=== PATIENT | female | born 1955 | race African-American/Black ===

== ENCOUNTER 2022-06-05 15:17 | Inpatient (IN) | payer MEDICARE ==
[~2022-06-05] VITALS: Ht 157.5 cm; Wt 49.0 kg
[2022-06-05 15:27] VITALS: BP 151/89
--- NOTE | 2022-06-05 15:27 | NUR ---
RN NOTES RECEIVED PT FROM [facility]IA [facility] TO ROOM 119-1 , PT IS A/Ox4. ON 2L O2 N/C , C/O SOB ON EXERTION , ON TELE SR , NO SKIN WOUND NOTED, R WRIST IV SITE CDI, LEFT ARM AVF WITH POSITIVE THRILL AND BRUIT , SR UP x3, CALL LIGHT WITHIN EASY REACH BED LOCKED AND IN LOWEST POSITION, CONTINUE TO MONITOR.
--- NOTE | 2022-06-05 15:34 | NUR ---
PATIENT RECEIVED FROM [facility]ARY DIRECT ADMIT,DR. TRIVEDI NOTIFIED AWAITS ADMITTING ORDERS.ON [place] FOR [facility] [place].
[2022-06-05] MEDS ORDERED: Z GUARD REMEDY 4 OZ OINT TP PRN (16:00)
[2022-06-05] MEDS ORDERED: *INSULIN REGULAR(HUMULIN R)HUM 100 UNIT/ML VIAL SQ PRN (16:00)
[2022-06-05] MEDS ORDERED: ACETAMINOPHEN 325 MG TABLET PO PRN (16:00)
[2022-06-05] MEDS ORDERED: MAGNESIUM HYDROXIDE 30 ML UDC PO PRN (16:00)
[2022-06-05] MEDS ORDERED: DEXTROSE 50%-WATER 50 ML DISP.SYRIN IV PRN (16:00)
[2022-06-05] MEDS ORDERED: ONDANSETRON HCL/PF 4 MG/2 ML VIAL IVP PRN (16:00)
[2022-06-05] MEDS ORDERED: MAG HYDROX/AL HYDROX/SIMETH 30 ML UDC PO PRN (16:00)
--- NOTE | 2022-06-05 16:00 | NUR ---
PER DR. TRIVEDI HE NOTIFIED DR. DAVIS ALREADY FOR HEMODIALYSIS.
[2022-06-05] MEDS: BLOOD SUGAR DIAGNOSTIC 1 EACH STRIP VI SCH ×2 (17:50→22:04)
--- NOTE | 2022-06-05 18:40 | NUR ---
RN NOTES PT AT REST , NO DISTRESS NOTED, WILL ENDORSE TO DATA INTEGRITY SPECIALIST NURSE FOR CONTINUITY OF CARE .
--- NOTE | 2022-06-05 19:10 | NUR ---
RN NOTES RECEIVED REPORT FROM MORNING SHIFT. PATIENT IN BED A/O X3. WITH ONGOING HD. ON NASAL CANULA AT 2 LPM SATING 99% NO SOB NO DISTRESS NOTED AT THIS TIME. WITH IV ACCESS AT R WRIST # 20 PATENT FLUSHES WELL. JOSE AV FISTULA. ISOLATION PRECAUTION IN PLACE AT ALL TIMES. WILL CLOSELY MONITOR THE PATIENT
[2022-06-05 20:00] VITALS: BP 155/81
--- NOTE | 2022-06-05 20:20 | NUR ---
RN NOTES MED RECON ENTERED AND INFORMED DR. SHAW.INFORMED.
[2022-06-05] MEDS ORDERED: LIDOCAINE 2% 20 ML MDV MC PRN (20:30)
--- NOTE | 2022-06-05 20:50 | NUR ---
RN NOTES HEMODIALYSIS COMPLETED. UF REMOVED 2L. PATIENT COMFORTABLE IN BED.
[2022-06-05] MEDS ORDERED: ALBU2.5V13 IH (21:52)
[2022-06-05] MEDS ORDERED: PRED10TA PO (21:52)
[2022-06-05] MEDS ORDERED: HYDR-4076 PO (21:52)
[2022-06-05] MEDS ORDERED: DOXY-226 IV (21:52)
[2022-06-05] MEDS: INSULIN REGULAR, HUMAN 100 UNIT/ML 3 ML VIAL SQ PRN (22:11)
[2022-06-06] VITALS: BP 146/88
--- NOTE | 2022-06-06 00:40 | NUR ---
RN NOTES RELAYED PROCALCITONIN 1.62. RELAYED TO DR SHAW WITH ORDER [facility]ARMACY TO DOSE.
[2022-06-06] MEDS ORDERED: CEFEPIME 1 GM in IV D5W 50 ML IV ONE (02:00)
[2022-06-06] MEDS ORDERED: CEFEPIME 1 GM VIAL ONE (02:35)
[2022-06-06 04:00] VITALS: BP 140/82
--- NOTE | 2022-06-06 06:42 | NUR ---
RN NOTES PATIENT REMAINS STABLE NO SIGNIFICANT CHANGES, STILL WITH IV ACCESS AT R FA PATENT, L AV FISTULA + THRILL AND BRUIT. ALL DUE MEDS GIVEN ORDERED. FOR HEMODIALYSIS IN A.M WILL ENDORSED TO MORNING SHIFT FOR SEAN
[2022-06-06 06:52] LABS: BASOPHILS % (AUTO) 0.5 % (0.0-2.0); EOSINOPHILS % (AUTO) 0.1 % (0.0-6.0); HEMATOCRIT 34 % (33-45); HEMOGLOBIN 10.9 g/dL (11.5-14.8); LYMPHOCYTES # (AUTO) 0.5 K/uL (0.8-4.8); LYMPHOCYTES % (AUTO) 5.7 % (20.0-44.0); MEAN CORPUSCULAR HGB CONC 33 g/dl (31.0-36.0); MEAN CORPUSCULAR VOLUME 88 fL (82-100); MONOCYTES # (AUTO) 0.9 K/uL (0.1-1.30); MONOCYTES % (AUTO) 9.6 % (2.0-12.0); NEUTROPHILS # (AUTO) 7.9 K/uL (1.8-8.9); NEUTROPHILS % (AUTO) 84.1 % (43.0-81.0); PLATELET COUNT (AUTO) 175 K/uL (150-450); RED BLOOD CELL COUNT(AUTO) 3.83 MIL/uL (4.0-5.2); WHITE BLOOD COUNT (AUTO) 9.4 K/uL (4.3-11.0)
[2022-06-06 07:14] LABS: CALCIUM, SERUM 7.6 mg/dL (8.5-10.1); MAGNESIUM 2.7 mg/dL (1.8-2.4); PHOSPHORUS 5.9 mg/dL (2.5-4.9); POTASSIUM 3.7 mmol/L (3.5-5.1)
[2022-06-06 07:23] LABS: CREATININE 7.9 mg/dL (0.6-1.3)
[2022-06-06 08:00] VITALS: BP 104/71
[2022-06-06] MEDS: BLOOD SUGAR DIAGNOSTIC 1 EACH STRIP VI SCH ×4 (08:20→21:58)
[2022-06-06] MEDS: INSULIN REGULAR, HUMAN 100 UNIT/ML 3 ML VIAL SQ PRN ×2 (09:35→12:24)
[2022-06-06] MEDS ORDERED: ALBUTEROL FS 2.5 MG/0.5 ML VIAL.NEB IH SCH (10:00)
[2022-06-06 10:40] LABS: IRON, SERUM 67 ug/dl (50-175); TOTAL IRON BINDING CAPACITY 154 ug/dl (250-450)
[2022-06-06 10:41] LABS: ALANINE AMINOTRANSFERASE 16 U/L (12-78); ALBUMIN 2.5 g/dL (3.4-5.0); ALKALINE PHOSPHATASE 64 U/L (46-116); ASPARTATE AMINOTRANSFERASE 20 U/L (15-37); BILIRUBIN,DIRECT 0.2 mg/dL (0.0-0.2); BILIRUBIN,TOTAL 0.4 mg/dL (0.2-1.0); TOTAL PROTEIN, SERUM 5.7 g/dL (6.4-8.2)
[2022-06-06 11:20] LABS: CHOLESTEROL 137 mg/dL (<200); FERRITIN 1608 ng/mL (8-388); HDL CHOLESTEROL 65 mg/dL (40-60); LDL 57 mg/dL (0-99); TRIGLYCERIDES 43 mg/dL (30-150)
[2022-06-06] MEDS ORDERED: NEPRO VAN 237 ML CAN PO PRN (11:30)
[2022-06-06 12:00] VITALS: BP 115/69
--- NOTE | 2022-06-06 12:30 | NUR ---
RN NOTE PATIENT REFUSED THE 2 UNITS OF INSULIN FOR THE BLOOD SUGAR LEVEL OF 150. PATIENT FINISHED WITH DIALYSIS AND 2 LITER WAS THE OUTPUT.
[2022-06-06] MEDS: HYDROCODONE/APAP 5/325MG TABLET PO PRN ×2 (13:00→20:39)
--- NOTE | 2022-06-06 13:30 | NUR ---
RN NOTE PATIENT REQUESTED A SOUP AND TOWEL TO WASH HER SELF IN HER OWN BATHROOM. PATIENT IS AMBULATORY. ALL SAFETY PRECAUTIONS IMPLEMENTED TO PREVENT PATIENT FROM FALLING.
[2022-06-06 16:00] VITALS: BP 134/62
[2022-06-06] MEDS: hydrALAZINE HCL 10 MG TABLET PO SCH (16:26)
--- NOTE | 2022-06-06 18:45 | NUR ---
RN CLOSING NOTES PATIENT REMAINS STABLE NO SIGNIFICANT CHANGES, STILL WITH IV ACCESS AT R FA PATENT, L AV FISTULA + THRILL AND BRUIT, HEMODIALYSIS DONE TODAY WITH THE OUTPUT OF 2 LITERS. PATIENT HAD CRAMPS RIGHT AFTER DIALYSIS AND ASKED FOR PAIN MEDICATION, NORCO 1 TABLET WAS GIVEN PATIENT FELT BETTER IN 20 MINUTES. ALL DUE MEDS GIVEN ORDERED. WILL ENDORSED TO BUTCHER APPRENTICE RN FOR SEAN
[2022-06-06 20:00] VITALS: BP 150/78
--- NOTE | 2022-06-06 20:48 | NUR ---
RN NOTE RECEIVED PT AWAKE, AOX4. ON O2 AT 2L VIA NC. DENIES ANY SOB. COMPLAINED OF PAIN ON BILATERAL FOOT. NORCO GIVEN ORDERED. AV SHUNT ON L. ARM +BRUIT AND THRILL. NO BLEEDING NOTED. ALL SAFETY MEASURES IN PLACE. WILL CONTINUE TO MONITOR.
[2022-06-06] MEDS ORDERED: CEFEPIME 1 GM in IV D5W 50 ML IV SCH (23:00)
[2022-06-07] VITALS: BP 132/64
[2022-06-07 04:00] VITALS: BP 127/72
--- NOTE | 2022-06-07 06:35 | NUR ---
RN NOTE PT SLEEPING, AROUSES EASILY. TOLERATING O2 AT 2L. DENIES SOB OR PAIN AT THIS TIME. PT ABLE TO MAKE NEEDS KNOWN. NEEDS ATTENDED. VS STABLE. WILL ENDORSE TO AM SHIFT NURSE FOR SEAN
[2022-06-07 07:24] LABS: CALCIUM, SERUM 7.5 mg/dL (8.5-10.1); POTASSIUM 3.9 mmol/L (3.5-5.1)
[2022-06-07 07:28] LABS: BASOPHILS % (AUTO) 0.6 % (0.0-2.0); EOSINOPHILS % (AUTO) 0.6 % (0.0-6.0); HEMATOCRIT 33 % (33-45); LYMPHOCYTES # (AUTO) 0.6 K/uL (0.8-4.8); LYMPHOCYTES % (AUTO) 7.7 % (20.0-44.0); MEAN CORPUSCULAR HGB CONC 33 g/dl (31.0-36.0); MEAN CORPUSCULAR VOLUME 87 fL (82-100); MONOCYTES # (AUTO) 0.7 K/uL (0.1-1.30); MONOCYTES % (AUTO) 8.9 % (2.0-12.0); NEUTROPHILS # (AUTO) 6.4 K/uL (1.8-8.9); NEUTROPHILS % (AUTO) 82.2 % (43.0-81.0); PLATELET COUNT (AUTO) 165 K/uL (150-450); RED BLOOD CELL COUNT(AUTO) 3.81 MIL/uL (4.0-5.2); WHITE BLOOD COUNT (AUTO) 7.8 K/uL (4.3-11.0)
[2022-06-07] MEDS: BLOOD SUGAR DIAGNOSTIC 1 EACH STRIP VI SCH (08:02)
[2022-06-07] MEDS: hydrALAZINE HCL 10 MG TABLET PO SCH ×2 (08:44→16:12)
[2022-06-07 09:21] VITALS: BP 120/83
--- NOTE | 2022-06-07 09:46 | NUR ---
SENIOR COBOL DEVELOPER OPENING NOTES RECEIVED PATIENT IN BED AWAKE, ALERT AND VERBALLY RESPONSIVE, PATIENT IN BED A/O X3. ON NASAL CANULA AT 2 LPM TOLERATING WELL, NO SOB NO DISTRESS NOTED AT THIS TIME. WITH IV ACCESS AT R WRIST # 20 INTATC. JOSE AV FISTULA NOTED POSITIVE FOR BRUIT AND THRILL, DRESSING C/D/I. ON TELE MONITORING WITH SR READING HR 60-80'S. ISOLATION PRECAUTION IN PLACE AT ALL TIMES. CALL LIGHT WITHIN REACH. WILL CONTINUE PLAN OF CARE.
[2022-06-07] MEDS: CARVEDILOL 6.25 MG TABLET PO SCH ×4 (10:30→20:11)
--- NOTE | 2022-06-07 11:15 | NUR ---
CRIMINAL INTELLIGENCE SPECIALIST NOTES CONSENT FOR CT ANGIOGRAM OF THE HEART OBTAINED. CALLED XRAY TO INFORMED. PIV ON THE RIGHT AC GAUGE 18 PLACED. PATENT AND INTACT, FLUSHES WELL. PATIENT REFUSED CARVEDILOL, PER PATIENT SHE DON'T TAKE THAT. WILL CONTINUE PLAN OF CARE.
[2022-06-07 12:00] VITALS: BP 101/64
[2022-06-07] MEDS ORDERED: NITROGLYCERIN 0.4 MG/TAB BOTTLE ONE (12:38)
[2022-06-07] MEDS ORDERED: METOPROLOL TARTRATE INJ 5 MG/5 ML AMPUL ONE (12:38)
--- NOTE | 2022-06-07 13:12 | NUR ---
MARKETING PLANNER NOTES EDUCATE PATIENT ABOUT TAKING CARVEDILOL, CONFIRMED UNDERSTANDING, AGREED TO TAKE CARVEDILOL. WILL CONTINUE PLAN OF CARE
--- NOTE | 2022-06-07 14:32 | NUR ---
EQUINE SCIENCE INSTRUCTOR NOTES PATIENT OUT TO CT ANGIOGRAPHY OF HEART.
--- NOTE | 2022-06-07 15:10 | NUR ---
LEAD BURNER NOTES PATIENT BACK FROM CT, COVID SWAB DONE, SENT TO THE LAB, PATIENT INSISTED TO GO OUTSIDE, EDUCATE PATIENT THAT SHE CAN'T GO OUTSIDE DUE TO HER ISOLATION, INFORMED THAT ONCE WE GET THE RESULT AND IT'S NEGATIVE SHE CAN GO OUTSIDE FOR FRESH AIR. WILL CONTINUE PLAN OF CARE.
[2022-06-07 16:00] VITALS: BP 117/70
--- NOTE | 2022-06-07 17:40 | NUR ---
HANDBAG FINISHER NOTES NOTED COVID RAPID TEST NEGATIVE, DR. TRIVEDI NOTIFIED, WITH ORDER TO D/DC ISOLATION, PATIENT STATED SHE IS TAKING PREDNISON 10MG Q DAILY FOR ASTHMA, INFORMED DR. TRIVEDI WITH ORDER TO START PREDNISONE, NOTED AND CARRIED OUT, WILL CONTINUE PLAN OF CARE.
--- NOTE | 2022-06-07 18:18 | NUR ---
SEED TRUCKER CLOSING NOTES RECEIVED PATIENT IN BED AWAKE, ALERT AND VERBALLY RESPONSIVE, PATIENT SITTING AT THE EDGE OF THE BED, ON ROOM AIR, TOLERATING WELL, NO SOB NO DISTRESS NOTED AT THIS TIME. WITH IV ACCESS AT R AC, PATENT AND INTACT, FLUSHES WELL. JOSE AV FISTULA NOTED POSITIVE FOR BRUIT AND THRILL, ON TELE MONITORING WITH SR PAC READING HR 86. CALL LIGHT WITHIN REACH. BED IN LOWEST POSITION. WILL ENDORSE TO CYBER INCIDENT RESPONDER NURSE FOR SEAN.
--- NOTE | 2022-06-07 19:30 | NUR ---
PT RECEIVED AWAKE IN BED. A/OX4. ON RA. NO SOB, NO SIGNS OF PAIN OR DISCOMFORT AT THIS TIME. IV ACCESS ON RAC G#18 WITH JOSE AV SHUNT C/D/I. CONTINENT WITH BATHROOM PRIVILEGE. SAFETY MEASURES IN PLACE. HOB ELEVATED, SIDERAILS UPX3, BED LOCKED IN LOWEST POSITION, BED ALARM ON, CALL LIGHT WITHIN REACH. WILL CONTINUE PLAN OF CARE.
[2022-06-07 20:00] VITALS: BP 127/65
[2022-06-08] VITALS: BP 109/65
[2022-06-08 04:00] VITALS: BP 117/79
--- NOTE | 2022-06-08 06:39 | NUR ---
PT ASLEEP IN BED. A/OX4. ON RA. NO SOB, NO SIGNS OF PAIN OR DISCOMFORT AT THIS TIME. IV ACCESS ON RAC G#18 WITH JOSE AV SHUNT C/D/I, POSITIVE FOR BRUIT AND THRILL. CONTINENT WITH BATHROOM PRIVILEGE. DUE MEDS GIVEN ORDERED. NEEDS ATTENDED. SAFETY MEASURES MAINTAINED. HOB ELEVATED, SIDERAILS UPX3, BED LOCKED IN LOWEST POSITION, BED ALARM ON, CALL LIGHT WITHIN REACH. WILL ENDORSE TO NEXT NURSE ON DUTY FOR CONTINUITY OF CARE.
--- NOTE | 2022-06-08 07:15 | NUR ---
RN notes Received patient in bed. Alert and oriented without active complaint. Telemetry showed SR 70/min. No SOB RA, RR 18/min. Noted bilateral LL edema. Call payan is placed within reach. Bed is locked and placed in lowest position. All safety measures have been implemented. Will continue monitoring and care.
[2022-06-08 08:05] VITALS: BP 128/75
[2022-06-08] MEDS: hydrALAZINE HCL 50 MG TABLET PO SCH ×3 (08:21→16:49)
[2022-06-08] MEDS: predniSONE 5 MG TABLET PO SCH ×2 (08:21→09:00)
[2022-06-08] MEDS: CARVEDILOL 6.25 MG TABLET PO SCH ×3 (08:22→21:00)
--- NOTE | 2022-06-08 08:25 | NUR ---
RN notes Prepared medications for patient. Patient refused prednisolone, claiming that she would only take it at 0400. She also refused hydralazine and insisted that she would only take 20mg hydralazine twice daily. At last, she refused carvedilol as it was a new medication. Explained to her the importance of having optimal BP control with respect to her cardiac and renal condition, she showed limited understanding and still refused. Would inform doctor.
[2022-06-08] MEDS ORDERED: predniSONE 10 MG TABLET PO SCH (09:00)
[2022-06-08 12:04] VITALS: BP 119/56
--- NOTE | 2022-06-08 12:25 | NUR ---
RN notes Dr. Fairbanks is notified about patient's refusal of medication. Will keep monitoring
[2022-06-08 16:00] VITALS: BP 127/69
--- NOTE | 2022-06-08 18:44 | NUR ---
RN notes Patient is resting in bed without active complaint. Telemetry showed SR with HR 69/min. Vital signs WNL despite refusal of anti-Ht. Right AC IV site is dry and intact. For HD tomorrow. Patient is able to mobilize in the room with her walking aid. Steady gait is noted. Call payan is placed within reach. All safety measures have been implemented. Bed is locked and placed in the lowest position. Kiesha endorse PM nurse to continue monitoring and care.
--- NOTE | 2022-06-08 19:30 | NUR ---
RN opening notes Received patient in bed. Alert and oriented x 4, without active complaint. Telemetry showed SR 76/min. No SOB RA, RR 18/min. Iv access on RAC #18g, sl noted. JOSE Av shunt for HD noted too. bilateral LL edema is present upon assessment. Call light is placed within reach. Bed is locked and placed in lowest position. All safety measures have been implemented. Will continue monitoring and care.
[2022-06-08 20:00] VITALS: BP 139/77
--- NOTE | 2022-06-08 21:08 | NUR ---
RN NOTE PT REFUSED COREG MED. SHE SAID SHE DID NOT WANT TO TAKE ANY NEW MEDICATION. EDUCATED PT ABOUT IMPORTANCE OF MED COMPLIANCE, STILL REFUSED.
[2022-06-08] MEDS: HYDROCODONE/APAP 5/325MG TABLET PO PRN (21:14)
[2022-06-09] VITALS: BP 140/77
[2022-06-09 04:00] VITALS: BP 134/72
--- NOTE | 2022-06-09 06:45 | NUR ---
RN NOTE NO SIGNIFICANT CHANGE T/O THE NIGHT. ALL VS STABLE. CAN BE NON COMPLIANT WITH DRUG MEDICATION. HD CURRENTLY ON GOING. WILL ENDORSE TO AM SHIFT NURSE FOR SEAN.
--- NOTE | 2022-06-09 07:52 | NUR ---
RN opening notes Received patient in bed. Alert and oriented x 4, without active complaint. Currently receiving hemodialysis. No SOB RA, Iv access on RAC #18g, sl noted. JOSE Av shunt for HD noted too. bilateral LL edema is present upon assessment. Call light is placed within reach. Bed is locked and placed in lowest position. All safety measures have been implemented.
[2022-06-09 08:00] VITALS: BP 149/75
[2022-06-09] MEDS: CARVEDILOL 6.25 MG TABLET PO SCH (09:00)
[2022-06-09] MEDS: HYDROCODONE/APAP 5/325MG TABLET PO PRN (09:23)
[2022-06-09] MEDS: hydrALAZINE HCL 50 MG TABLET PO SCH (09:23)
[2022-06-09] MEDS: predniSONE 5 MG TABLET PO SCH (09:23)
[2022-06-09 12:00] VITALS: BP 122/73
[2022-06-09] MEDS ORDERED: HYDR-4077 PO (12:36)
[2022-06-09] MEDS ORDERED: Hydrocodone/Apap 5/325MG PO (12:36)
[2022-06-09] MEDS ORDERED: CARV6.252 PO (12:36)
--- NOTE | 2022-06-09 15:08 | NUR ---
pattern scratcher PT been picked up by trolley coach driver in stable condition.
== END 2022-06-09 14:59 | DRG 291 ==
LOC: TELE1 15:17
PROVIDERS: ADMIT Internal Medicine; ATTEND Internal Medicine
PROC: 5A1D70Z Performance of Urinary Filtration, Intermittent, Less than 6 Hours Per Day (ICD-10-PCS; principal; 2022-06-05)
DX: I13.2 Hypertensive heart and chronic kidney disease with heart failure and with stage 5 chronic kidney disease, or end stage renal disease (principal); I50.23 Acute on chronic systolic (congestive) heart failure; N18.6 End stage renal disease; Z20.822 Contact with and (suspected) exposure to COVID-19; K74.60 Unspecified cirrhosis of liver; Z59.00 Homelessness unspecified; Z79.51 Long term (current) use of inhaled steroids; Z79.899 Other long term (current) drug therapy; Z88.6 Allergy status to analgesic agent; Z88.1 Allergy status to other antibiotic agents; Z88.2 Allergy status to sulfonamides; Z88.8 Allergy status to other drugs, medicaments and biological substances; Z86.16 Personal history of COVID-19; D63.8 Anemia in other chronic diseases classified elsewhere; M89.8X9 Other specified disorders of bone, unspecified site; Z99.2 Dependence on renal dialysis
CPT/HCPCS: 36415; 71045-TC; 75574; 80048-TC; 80061-TC; 80076-TC; 82728-TC; 82962-TC; 83540-TC; 83735-TC; 84100-TC; 84484-TC; 85025-TC; 86706; 87081-TC; 87340; 90935-TC; 93307-TC; G0378; J0692; J1815; J3490; J7030; J7050; J7060; J7512

== ENCOUNTER 2022-11-02 13:08 | Emergency (ER) | payer MEDICARE, OTHER ==
[~2022-11-02] VITALS: Ht 152.4 cm; Wt 48.1 kg
[~2022-11-02 13:08] MED LIST: ALBU2.5V13 IH; CARV6.252 PO; HYDR-4076 PO; HYDR-4077 PO; Hydrocodone/Apap 5/325MG PO; PRED10TA PO
--- NOTE | 2022-11-02 13:54 | NUR ---
billing coordinator at bedside
[2022-11-02 14:06] LABS: BASOPHILS % (AUTO) 0.5 % (0.0-2.0); EOSINOPHILS % (AUTO) 0.3 % (0.0-6.0); HEMATOCRIT 35 % (33-45); HEMOGLOBIN 11.2 g/dL (11.5-14.8); LYMPHOCYTES # (AUTO) 0.4 K/uL (0.8-4.8); LYMPHOCYTES % (AUTO) 6.1 % (20.0-44.0); MEAN CORPUSCULAR HGB CONC 32 g/dl (31.0-36.0); MEAN CORPUSCULAR VOLUME 89 fL (82-100); MONOCYTES # (AUTO) 0.3 K/uL (0.1-1.30); MONOCYTES % (AUTO) 4.4 % (2.0-12.0); NEUTROPHILS # (AUTO) 6.2 K/uL (1.8-8.9); NEUTROPHILS % (AUTO) 88.7 % (43.0-81.0); PLATELET COUNT (AUTO) 149 K/uL (150-450); RED BLOOD CELL COUNT(AUTO) 3.95 MIL/uL (4.0-5.2)
--- NOTE | 2022-11-02 14:16 | NUR ---
consent for paracentesis obtained
--- NOTE | 2022-11-02 15:23 | NUR ---
AT BEDSIDE FOR PARACENTESIS
[2022-11-02 15:49] LABS: ALBUMIN 3.7 g/dL (3.4-5.0); BILIRUBIN,DIRECT 0.3 mg/dL (0.0-0.2); BILIRUBIN,TOTAL 0.6 mg/dL (0.2-1.0); CALCIUM, SERUM 9.6 mg/dL (8.5-10.1); POTASSIUM 4.8 mmol/L (3.5-5.1); TOTAL PROTEIN, SERUM 7.1 g/dL (6.4-8.2)
--- NOTE | 2022-11-02 15:49 | NUR ---
DR. BEARD. 1500ML REMOVED FROM RLQ. DOMENICA RIOJAS
[2022-11-02 15:53] LABS: CREATININE 8.6 mg/dL (0.6-1.3)
--- NOTE | 2022-11-02 16:27 | NUR ---
paracentesis fluid sent to lab
--- NOTE | 2022-11-02 16:42 | NUR ---
CALLED [facility] AND SET UP BLS TRANSPORT ETA 1612
--- NOTE | 2022-11-02 16:46 | NUR ---
called [facility] and spoke to RN, Sabina. informed of what was done here and that patient wants to leave AMA. She said it is fine if she signs AMA and uses the transportation to make it back to the center
[2022-11-02 17:15] VITALS: BP 122/71
--- NOTE | 2022-11-02 17:30 | NUR ---
PATIENT SIGNED DISCHARGED PAPERS. BLS TRANSPORT TAKING HER BACK TO FACILITY
== END 2022-11-02 17:31 ==
LOC: ER 13:17
DX: R18.8 Other ascites (principal); K74.60 Unspecified cirrhosis of liver; I12.0 Hypertensive chronic kidney disease with stage 5 chronic kidney disease or end stage renal disease; N18.6 End stage renal disease; F31.9 Bipolar disorder, unspecified; Z99.2 Dependence on renal dialysis; Z88.8 Allergy status to other drugs, medicaments and biological substances; Z79.899 Other long term (current) drug therapy
CPT/HCPCS: 36415; 49083; 76942-TC; 80048-TC; 80076-TC; 83690-TC; 85025-TC; 85730-TC

== ENCOUNTER 2022-11-15 07:14 | Inpatient (IN) | payer MEDICARE, OTHER ==
[~2022-11-15] VITALS: Ht 157.5 cm; Wt 52.6 kg
--- NOTE | 2022-11-15 07:17 | NUR ---
ANOOP 78 FROM FACILITY HAVING ACTIVE AVFISTULA BLEEDING. LAST HD WAS LAST PER PATIENT.
--- NOTE | 2022-11-15 07:20 | NUR ---
AT BEDSIDE FOR AVF EVALUATION. NO SIGNS AND SYMPTOMS OF ANY BLEEDING NOTED.
--- NOTE | 2022-11-15 07:50 | NUR ---
pt put on monitor and pulse, bld drawn and sent to lab.ivf hooked
--- NOTE | 2022-11-15 07:51 | NUR ---
MOVE SHEET SUBMITTED.
--- NOTE | 2022-11-15 07:51 | NUR ---
COVID swab collected, sent to lab
[2022-11-15] MEDS ORDERED: IV NS 0.9% 1,000 ML IV ONE (08:00)
[2022-11-15 08:13] LABS: BASOPHILS # (AUTO) 0.1 K/uL (0.0-0.2); BASOPHILS % (AUTO) 0.8 % (0.0-2.0); EOSINOPHILS % (AUTO) 2.2 % (0.0-6.0); HEMATOCRIT 28 % (33-45); HEMOGLOBIN 8.7 g/dL (11.5-14.8); LYMPHOCYTES # (AUTO) 0.6 K/uL (0.8-4.8); LYMPHOCYTES % (AUTO) 5.1 % (20.0-44.0); MEAN CORPUSCULAR HGB CONC 31 g/dl (31.0-36.0); MEAN CORPUSCULAR VOLUME 91 fL (82-100); MONOCYTES # (AUTO) 0.9 K/uL (0.1-1.30); MONOCYTES % (AUTO) 8.5 % (2.0-12.0); NEUTROPHILS # (AUTO) 9.2 K/uL (1.8-8.9); NEUTROPHILS % (AUTO) 83.4 % (43.0-81.0); PLATELET COUNT (AUTO) 190 K/uL (150-450); RED BLOOD CELL COUNT(AUTO) 3.11 MIL/uL (4.0-5.2)
[2022-11-15 08:19] LABS: ALBUMIN 2.8 g/dL (3.4-5.0); BILIRUBIN,DIRECT 0.3 mg/dL (0.0-0.2); BILIRUBIN,TOTAL 0.8 mg/dL (0.2-1.0); CALCIUM, SERUM 9.2 mg/dL (8.5-10.1); POTASSIUM 4.4 mmol/L (3.5-5.1); TOTAL PROTEIN, SERUM 5.7 g/dL (6.4-8.2)
--- NOTE | 2022-11-15 10:20 | NUR ---
[facility] CALLED PROGRAM THERAPIST PAGED.
--- NOTE | 2022-11-15 11:13 | NUR ---
REPORT GIVEN TO ANNY SCOTT
[2022-11-15] MEDS ORDERED: DIAZ10TA4 PO (11:22)
[2022-11-15] MEDS ORDERED: HYDR-4303 PO (11:22)
[2022-11-15] MEDS ORDERED: DIPH25CA51 PO (11:22)
[2022-11-15] MEDS ORDERED: HYDR-4077 PO (11:22)
[2022-11-15] MEDS ORDERED: CARV6.252 PO (11:22)
[2022-11-15] MEDS ORDERED: MAG30ORA PO (11:22)
[2022-11-15] MEDS ORDERED: SUCR500T PO (11:22)
[2022-11-15] MEDS ORDERED: ARIP10TA9 PO (11:22)
[2022-11-15] MEDS ORDERED: NUT.237L67 PO (11:22)
[2022-11-15] MEDS ORDERED: FLUT16SP16 (11:22)
[2022-11-15] MEDS ORDERED: GUAI100S11 GT (11:22)
[2022-11-15] MEDS ORDERED: ALBU18HF2 IH (11:22)
[2022-11-15] MEDS ORDERED: ONDA4TAB5 PO (11:22)
[2022-11-15] MEDS ORDERED: MINE105O TP (11:22)
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
[2022-11-15 11:45] VITALS: BP 117/54
[2022-11-15] MEDS ORDERED: ONDANSETRON HCL/PF 4 MG/2 ML VIAL IVP PRN (12:30)
[2022-11-15 16:00] VITALS: BP 130/58
[2022-11-15 17:45] VITALS: BP 117/54
--- NOTE | 2022-11-15 19:25 | NUR ---
CLOSING NOTE PATIENT SLEEPING, WITH VISIBLE CHEST EXTENSION. ABUSABLE TO VERBAL STIMULI, A/Ox4. ON ROOM AIR, NO S/S OF RESPIRATORY DISTRESS OR SOB. ON EXTERNAL MONITOR READING SR 70s. NO PAIN, OR S/S OF PAIN. FALL AND SAFETY PRECAUTION MAINTAIN: BED LOCKED AND AT THE LOWEST POSITION, SRx2, CALL LIGHT WITHIN REACH.
--- NOTE | 2022-11-15 19:29 | NUR ---
RN OPENING NOTE PATIENT AWAKE IN BED. A/OX4. NO S/S OF DISTRESS, BREATHING WITHOUT DIFFICULTY ON ROOM AIR W/ 2L NC PRN (COMFORT). RFA #20 SL INTACT AND PATENT. TELE READS SR 70. SAFETY MEASURES IN PLACE: BED LOCKED AND AT LOWEST POSITION, RAILS UP X2, CALL DYKES WITHIN REACH. WILL CONTINUE TO MONITOR PATIENT.
[2022-11-15 20:00] VITALS: BP 133/67
[2022-11-16] VITALS (8 sets, daily range): BP systolic 118–158; BP diastolic 54–70
[2022-11-16] MEDS ORDERED: HYDROMORPHONE 1 MG/1 ML DISP.SYRIN IV STA (02:33)
--- NOTE | 2022-11-16 02:43 | NUR ---
RN NOTES COVERING LUNCH BREAK FOR ROZ.ONE TIME DILAUDID ORDER OF 1 MG GIVEN PER ORDER FOR NECK PAIN. WILL ASSESS IN 30 MIN.
--- NOTE | 2022-11-16 02:46 | NUR ---
RN NOTES PRN ZOFRAN GIVEN ORDER FOR NAUSEA PER PATIENT REQUEST AT 0246.COVERING LUNCH BREAK FOR TYLER COURTNEY.
--- NOTE | 2022-11-16 02:51 | NUR ---
RN NOTES COVERING FOR LUNCH FOR RN NURSE ROZ. DR BANEGAS ARRIVED FOR HD CATHETER INSERTION. NEW ORDER OF DILAUDID 1 MG IV GIVEN ONE TIME FOR PAIN.ORDER NOTED AND CARRIED OUT.
[2022-11-16 05:58] LABS: BASOPHILS # (AUTO) 0.1 K/uL (0.0-0.2); BASOPHILS % (AUTO) 0.6 % (0.0-2.0); EOSINOPHILS % (AUTO) 2.3 % (0.0-6.0); HEMATOCRIT 21 % (33-45); LYMPHOCYTES # (AUTO) 0.7 K/uL (0.8-4.8); MEAN CORPUSCULAR HGB CONC 32 g/dl (31.0-36.0); MEAN CORPUSCULAR VOLUME 90 fL (82-100); MONOCYTES % (AUTO) 10.8 % (2.0-12.0); NEUTROPHILS # (AUTO) 7.1 K/uL (1.8-8.9); NEUTROPHILS % (AUTO) 78.3 % (43.0-81.0); PLATELET COUNT (AUTO) 151 K/uL (150-450); RED BLOOD CELL COUNT(AUTO) 2.28 MIL/uL (4.0-5.2); WHITE BLOOD COUNT (AUTO) 9.1 K/uL (4.3-11.0)
[2022-11-16 06:15] LABS: HEMOGLOBIN 6.5 g/dL (11.5-14.8)
[2022-11-16 06:16] LABS: CALCIUM, SERUM 8.9 mg/dL (8.5-10.1); MAGNESIUM 3.3 mg/dL (1.8-2.4); PHOSPHORUS 3.5 mg/dL (2.5-4.9); POTASSIUM 4.9 mmol/L (3.5-5.1)
--- NOTE | 2022-11-16 06:22 | NUR ---
RN NOTE LAB NOTIFIED PT HAS HGB OF 6.5. ANDREEA, ON-CALL, CONTACTED FOR ORDERS - AWAITING ORDERS.
--- NOTE | 2022-11-16 06:43 | NUR ---
RN CLOSING NOTE PATIENT ASLEEP IN BED. A/OX4. NO S/S OF DISTRESS, BREATHING WITHOUT DIFFICULTY ON 2L NC. RFA #20 SL INTACT AND PATENT; RIJ HD CATH INTACT AND WITHOUT SIGNS OF DISLODGEMENT. TELE READS SR 80. SAFETY MEASURES IN PLACE: BED LOCKED AND AT LOWEST POSITION, RAILS UP X2, CALL DYKES WITHIN REACH. WILL ENDORSE TO NEXT SHIFT FOR SEAN.
--- NOTE | 2022-11-16 07:30 | NUR ---
RN OPENING NOTE RECEIVED PATIENT IN BED, ASLEEP, EASILY AWAKENED. NO SIGNS OF ACUTE DISTRESS NOTED. ON O2 INHALATION @2LPM VIA N/C, NO SOB NOTED, BREATHING EVEN AND UNLABORED. DENIES ANY PAIN AT THIS TIME. ON CARDIAC MONITORING SHOWING SINUS RHYTHM, HR @ 62. NOTED WITH RIGHT IJ HD CATHETER, INTACT. LEFT UPPER ARM AV FISTULA WITH PRESSURE DRESSING INTACT. NO ACTIVE BLEEDING NOTED AT THIS TIME. PERIPHERAL LINE ON RIGHT FORE ARM #20G, INTACT AND PATENT, SALINE LOCKED. SAFETY MEASURE IN PLACE, BED IN LOW AND LOCKED POSITION. SIDE RAILS UP X2, CALL LIGHT PLACED WITHIN EASY REACH. WILL CONTINUE TO MONITOR PATIENT.
[2022-11-16 08:53] LABS: EOSINOPHILS % (MANUAL) 2 % (0-4); LYMPHOCYTES % (MANUAL) 10 % (16-48); MONOCYTES % (MANUAL) 6 % (0-11.0); NEUTROPHILS % (MANUAL) 82 (42-76)
[2022-11-16] MEDS: ARIPIPRAZOLE 5 MG TABLET PO SCH ×2 (11:30→11:43)
[2022-11-16] MEDS ORDERED: diphenhydrAMINE HCL 25 MG CAPSULE PO PRN (11:30)
[2022-11-16] MEDS: hydrALAZINE HCL 50 MG TABLET PO SCH ×2 (11:30→16:39)
[2022-11-16] MEDS ORDERED: ALBUTEROL FS 2.5 MG/0.5 ML VIAL.NEB NEB PRN (11:30)
[2022-11-16] MEDS ORDERED: predniSONE 10 MG TABLET PO SCH (11:30)
[2022-11-16] MEDS: CARVEDILOL 6.25 MG TABLET PO SCH ×2 (11:30→21:00)
[2022-11-16] MEDS: NEPRO VAN 237 ML CAN PO SCH (11:44)
--- NOTE | 2022-11-16 11:45 | NUR ---
RN NOTE ANTI-HYPERTENSIVE MEDICATIONS WITHHELD, PATIENT SCHEDULED FOR DIALYSIS TODAY.
[2022-11-16] MEDS ORDERED: Medication Not On Formulary EA (Sucroferric Oxyhydroxide (Velphoro) 500 MG) PO SCH (13:00)
[2022-11-16] MEDS: predniSONE 20 MG TABLET PO SCH (13:08)
[2022-11-16] MEDS: HYDROCODONE/APAP 5/325MG TABLET PO PRN (13:20)
--- NOTE | 2022-11-16 13:41 | NUR ---
RN NOTE PATIENT'S BLOOD TRANSFUSION STARTED WITH HEMODIALYSIS.
--- NOTE | 2022-11-16 15:00 | NUR ---
RN NOTE PATIENT FINISHED HD AND BLOD TRANSFUSION OF I UNIT PRBC. NO A/R NOTED. PATIENT TOLERATED PROCEDURE WELL. VITAL SIGNS WNL.
[2022-11-16] MEDS: FLUTICASONE PROPIONATE 16 GM BOTTLE NS SCH (15:02)
[2022-11-16] MEDS: APIXABAN 2.5 MG TABLET PO SCH (16:40)
[2022-11-16] MEDS: NEOMY SULF/BACITRAC ZN/POLY 15 GM TUBE TP SCH (17:50)
--- NOTE | 2022-11-16 18:42 | NUR ---
RN CLOSING NOTE PATIENT IN BED, ASLEEP, EASILY AROUSED. A/O X4, VERBALLY RESPONSIVE AND ABLE TO MAKE NEEDS NOWN. NO SIGNS OF ACUTE DISTRESS NOTED. ON O2 INHALATION @2LPM VIA N/C PRN, NO SOB NOTED, BREATHING EVEN AND UNLABORED. RIGHT IJ HD CATHETER, INTACT. LEFT UPPER ARM AV FISTULA WITH PRESSURE DRESSING INTACT. NO ACTIVE BLEEDING NOTED. PERIPHERAL LINE ON RIGHT FORE ARM #20G, INTACT AND PATENT, SALINE LOCKED. SAFETY MEASURE MAINTAINED, BED IN LOW AND LOCKED POSITION. SIDE RAILS UP X2, CALL LIGHT PLACED WITHIN EASY REACH. WILL ENDORSE TO NEXT SHIFT FOR CONTINUITY OF CARE.
--- NOTE | 2022-11-16 19:28 | NUR ---
RN OPENING NOTE PATIENT ASLEEP IN BED. A/OX4. NO S/S OF DISTRESS, BREATHING WITHOUT DIFFICULTY ON 2L NC. RFA #20 SL INTACT AND PATENT. RIJ HD CATH INTACT W/ NO SIGNS OF DISLODGEMENT. SAFETY MEASURES IN PLACE: BED LOCKED AND AT LOWEST POSITION, RAILS UP X2, CALL DYKES WITHIN REACH. WILL CONTINUE TO MONITOR PATIENT.
[2022-11-16] MEDS: DIAZEPAM 5 MG TABLET PO SCH (21:37)
--- NOTE | 2022-11-17 06:13 | NUR ---
RN CLOSING NOTE PATIENT ASLEEP IN BED. A/OX4. NO S/S OF DISTRESS, BREATHING WITHOUT DIFFICULTY ON 2L NC. RFA #20 SL INTACT AND PATENT. RIJ HD CATH INTACT W/ NO SIGNS OF DISLODGEMENT OR BLEEDING. SAFETY MEASURES IN PLACE: BED LOCKED AND AT LOWEST POSITION, RAILS UP X2, CALL DKYES WITHIN REACH. WILL ENDORSE TO NEXT SHIFT FOR SEAN.
[2022-11-17 06:25] LABS: BASOPHILS % (AUTO) 0.2 % (0.0-2.0); EOSINOPHILS % (AUTO) 0.3 % (0.0-6.0); HEMATOCRIT 23 % (33-45); HEMOGLOBIN 7.1 g/dL (11.5-14.8); LYMPHOCYTES # (AUTO) 0.4 K/uL (0.8-4.8); MEAN CORPUSCULAR HGB CONC 32 g/dl (31.0-36.0); MEAN CORPUSCULAR VOLUME 88 fL (82-100); MONOCYTES # (AUTO) 0.5 K/uL (0.1-1.30); MONOCYTES % (AUTO) 5.5 % (2.0-12.0); NEUTROPHILS # (AUTO) 7.4 K/uL (1.8-8.9); PLATELET COUNT (AUTO) 131 K/uL (150-450); RED BLOOD CELL COUNT(AUTO) 2.57 MIL/uL (4.0-5.2); WHITE BLOOD COUNT (AUTO) 8.3 K/uL (4.3-11.0)
--- NOTE | 2022-11-17 07:00 | NUR ---
RN OPENING NOTE PATIENT AWAKE BUT AROUSABLE, A/OX4. NO S/S OF DISTRESS, BREATHING WITHOUT DIFFICULTY ON 2L NC. RFA #20 SL INTACT AND PATENT. RIJ HD CATH INTACT W/ NO SIGNS OF DISLODGEMENT. WITH DRESSING ON LEFT UPPER ARM, AN AV FISTULA FORMER HEMODIALYSIS SITE. pATIENT IS S/P 1 PRBC. SAFETY MEASURES IN PLACE: BED LOCKED AND AT LOWEST POSITION, RAILS UP X2, CALL DYKES WITHIN REACH. WILL CONTINUE TO MONITOR THE PATIENT.
[2022-11-17 08:00] VITALS: BP 138/77
--- NOTE | 2022-11-17 08:15 | NUR ---
Bleeding incident occurred on left upper arm fistula (former HD site). Pressured applied to stop the bleeding. Appropriate dressing applied. New orders BMP, CBC, in placed. Charge nurse aware. Also awaiting wound consult and Physician consult-vascular surgeon
[2022-11-17] MEDS: FLUTICASONE PROPIONATE 16 GM BOTTLE NS SCH (08:47)
[2022-11-17] MEDS: ARIPIPRAZOLE 5 MG TABLET PO SCH ×2 (08:48→08:59)
[2022-11-17] MEDS: predniSONE 20 MG TABLET PO SCH (08:48)
[2022-11-17] MEDS: hydrALAZINE HCL 50 MG TABLET PO SCH ×2 (08:50→19:01)
[2022-11-17] MEDS: CARVEDILOL 6.25 MG TABLET PO SCH ×2 (08:50→21:11)
[2022-11-17] MEDS: APIXABAN 2.5 MG TABLET PO SCH ×2 (08:51→17:00)
[2022-11-17] MEDS: HYDROCODONE/APAP 5/325MG TABLET PO PRN ×2 (08:51→22:35)
[2022-11-17] MEDS: NEPRO VAN 237 ML CAN PO SCH (08:53)
[2022-11-17] MEDS: NEOMY SULF/BACITRAC ZN/POLY 15 GM TUBE TP SCH (08:55)
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
[2022-11-17] MEDS: MINERAL OIL/PETROL OINT 396 GM JAR TP SCH ×2 (11:37→21:24)
[2022-11-17 13:02] LABS: HEMOGLOBIN 6.6 g/dL (11.5-14.8)
[2022-11-17 15:17] VITALS: BP 127/54
--- NOTE | 2022-11-17 15:17 | NUR ---
Patient started on blood transfusion of 1 unit prbc at this time. Prior to transfusion, patient educated on risks and benefits, patient has signed Blood transfusion consent on file. Pre transfusion, VS as follows: BP-127/54, WY-95, Resp-18, T-98.0, SPO2-95. Blood picked up from the lab and verified with foundry laborer coreroom. NO leakage, no clots, or discoloration noted. Blood verified at patient's bedside with TYLER Noriega prior to starting. Will continue to monitor and reassess for any transfusion reactions.
[2022-11-17 15:32] VITALS: BP 138/57
--- NOTE | 2022-11-17 15:32 | NUR ---
Patient undergoing blood transfusion, no transfusion reactions such as SOB, chills, fever, headache, back pain, nor hives noted. VS as follows: T-98.2, NV-65, Resp-19, BP-138/57. SPO2-95.
[2022-11-17 16:00] VITALS: BP 134/54
[2022-11-17 16:02] VITALS: BP 147/72
--- NOTE | 2022-11-17 16:02 | NUR ---
Patient remain stable without signs and symptoms of any blood transfusions. VS as follows: Temp-98.2, NJ-69, Resp-19, BP-147/72, SPO2-96. Transfusions ended early as it was done simultaneously with hemodialysis. Will continue to monitor the patient.
--- NOTE | 2022-11-17 16:35 | NUR ---
At approximately 1645, patient decided to go AMA despite all efforts made not to do so by DR Cj Young & charge nurse Malvin. Patient was educated of risks involved given her condition and pending possible vascular surgery. Patient's reason for AMA not clear but patient demanded privacy phone call outside the hospital as she was wanting to seal approval of the apartment she earlier negotiated. Patient avf started to bleed earlier with appropriate measures and dressing changed done, Dr. Cj Young aware and present on the floor during the bleeding and AMA incident. Patient's daughter arrived and unable to convince her mom not to leave the hospital. Hospital news production supervisor and hospitalist Pascual Mijares informed. Private room and space was offered to the patient who was demanding privacy at the time, however declined by the patient and still decided to purse AMA. Patient signed the AMA form. Dr Cj Young signed and approved retention of IV line anticipating patient's return to the hospital.
--- NOTE | 2022-11-17 17:00 | NUR ---
PATIENT IS AGGRESSIVE AND BEEN WANTING TO GO OUT OF THE HOSPITAL. DR. RODRÍGUEZ IS OKAY FOR THEM TO HAVE THAT PRIVILEGE BUT SOMEONE IN CHARGE I TOLD THEM THAT I WOULD ALLOW IT LONG THEY WOULD BE ACCOMPANIED BY ONE OF OUR CONTENT CHECKER's. PATIENT BECAME MORE AGGRESSIVE AND ARGUMENTATIVE. SHE DOES NOT WANT ANYBODY TO GO WITH HER AND HER DAUGHTER. I EXPLAINED TO THEM THE RISKS OF HER FUTURE ACTIONS SINCE HER FISTULA IS HAVING A PROBLEM WITH BLEEDING. STILL SHE REFUSED TO BE ASSISTED/ACCOMPANIED. REINFORCED TEACHING BUT PATIENT DOESN'T WANT TO LISTEN AND JUST BECOMING MORE AGITATED. PATIENT SIGNED AMA. TAI LOW NP AND BRAKE OPERATOR SHEET METAL MELVIN WAS GLADYS LOPEZ. 1 HR AFTER PATIENT CAME BACK TO ER AND WAS READMITTED. PATIENT IS SCHEDULED TO HAVE A PROCEDURE TOMORROW.
--- NOTE | 2022-11-17 19:57 | NUR ---
RN CLOSING NOTE PATIENT AWAKE IN BED. A/OX4. NO S/S OF DISTRESS, BREATHING WITHOUT DIFFICULTY ON 2L NC. RFA #20 SL INTACT AND PATENT. RIJ HD CATH INTACT W/ NO SIGNS OF DISLODGEMENT OR BLEEDING. PATIENT IS NPO EXCEPT MEDS AFTER MIDNIGHT. SAFETY MEASURES IN PLACE: BED LOCKED AND AT LOWEST POSITION, RAILS UP X2, CALL DYKES WITHIN REACH. PATIENT ENDORSED TO PM SHIFT NURSE FOR SEAN
--- NOTE | 2022-11-17 20:00 | NUR ---
RN OPENING NOTE RECEIVED PATIENT IN BED AWAKE. A/OX4. ABLE TO MAKE NEEDS KNOWN. IV ACCESS ON RIGHT ARM #20 SALINE LOCK NOTED TO BE PATENT AND INTACT. WITH RIGHT UPPER ARM HD CATHETER DRESSING NOTED TO BE CLEAN, NOT BLEEDING NON FUNCTIONING ENDORSED. WITH RIGHT INTRA JAGUAR HD CATHETER NOTED TO BE CLEAN AND INTACT. PATIENT ON ROOM AIR TOLERATING WELL NO SIGNS OF SOB, NOT IN DISTRESS. NO COMPLAINS OF PAIN OR DISCOMFORT AT THE MOMENT. SAFETY MEASURE IN PLACED: BED LOCKED AND IN LOWEST POSITION, SIDE RAILS UP X3, BED SIDE TABLE AND CALL LIGHT WITHIN PATIENT REACH, HOB SLIGHTLY ELEVATED.
[2022-11-17 20:38] VITALS: BP 132/56
[2022-11-17] MEDS: DIAZEPAM 5 MG TABLET PO SCH (21:11)
[2022-11-17 22:20] LABS: BASOPHILS # (AUTO) 0.1 K/uL (0.0-0.2); BASOPHILS % (AUTO) 0.6 % (0.0-2.0); EOSINOPHILS % (AUTO) 0.2 % (0.0-6.0); HEMATOCRIT 22 % (33-45); HEMOGLOBIN 7.4 g/dL (11.5-14.8); LYMPHOCYTES # (AUTO) 0.3 K/uL (0.8-4.8); LYMPHOCYTES % (AUTO) 3.3 % (20.0-44.0); MEAN CORPUSCULAR HGB CONC 34 g/dl (31.0-36.0); MEAN CORPUSCULAR VOLUME 86 fL (82-100); MONOCYTES # (AUTO) 0.6 K/uL (0.1-1.30); MONOCYTES % (AUTO) 5.9 % (2.0-12.0); NEUTROPHILS # (AUTO) 8.9 K/uL (1.8-8.9); PLATELET COUNT (AUTO) 127 K/uL (150-450); RED BLOOD CELL COUNT(AUTO) 2.57 MIL/uL (4.0-5.2); WHITE BLOOD COUNT (AUTO) 9.9 K/uL (4.3-11.0)
--- NOTE | 2022-11-17 22:29 | NUR ---
RN NOTE PATIENT SIGNED CONSENT FOR ANESTHESIA, BLOOD TRANSFUSION AND PROCEDURE CONSENT FOR REVISION AND POSSIBLE LIGATION OF LEFT FISTULA AND POSSIBLE TUNNELED CATHETER. DOCUMENTS ARE ATTACHED TO THE PATIENT CHART.
--- NOTE | 2022-11-17 22:35 | NUR ---
RN NOTE PATIENT COMPLAINS OF PAIN ON LEFT UPPER ARM SCALE OF 9/10. PAIN MEDICATION IS GIVEN ORDERED. WILL REASSESS.
--- NOTE | 2022-11-17 23:36 | NUR ---
RN NOTE PATIENT CLAIMS RELIEF OF PAIN ON HER LEFT UPPER ARM.
--- NOTE | 2022-11-17 23:40 | NUR ---
RN NOTE INFORMED THE PATIENT TO BE NPO @ MIDNIGHT EXCEPT MEDS FOR THE PROCEDURE TOMORROW. PATIENT VERBALIZES UNDERSTANDING.
[2022-11-18 05:55] LABS: BASOPHILS % (AUTO) 0.3 % (0.0-2.0); EOSINOPHILS % (AUTO) 1.1 % (0.0-6.0); HEMATOCRIT 23 % (33-45); HEMOGLOBIN 7.8 g/dL (11.5-14.8); LYMPHOCYTES # (AUTO) 0.5 K/uL (0.8-4.8); LYMPHOCYTES % (AUTO) 5.2 % (20.0-44.0); MEAN CORPUSCULAR HGB CONC 33 g/dl (31.0-36.0); MEAN CORPUSCULAR VOLUME 87 fL (82-100); MONOCYTES % (AUTO) 10.3 % (2.0-12.0); NEUTROPHILS % (AUTO) 83.1 % (43.0-81.0); PLATELET COUNT (AUTO) 138 K/uL (150-450); WHITE BLOOD COUNT (AUTO) 9.6 K/uL (4.3-11.0)
[2022-11-18 06:08] LABS: CALCIUM, SERUM 8.7 mg/dL (8.5-10.1); CREATININE 6.1 mg/dL (0.6-1.3); POTASSIUM 4.4 mmol/L (3.5-5.1)
--- NOTE | 2022-11-18 06:30 | NUR ---
RN CLOSING NOTE PATIENT IN BED AWAKE. A/OX4. ABLE TO MAKE NEEDS KNOWN. IV ACCESS ON RIGHT ARM #20 SALINE LOCK NOTED TO BE PATENT AND INTACT. WITH RIGHT UPPER ARM HD CATHETER DRESSING NOTED TO BE CLEAN, NOT BLEEDING NON FUNCTIONING ENDORSED. WITH RIGHT INTRA JAGUAR HD CATHETER NOTED TO BE CLEAN AND INTACT FREE FROM INFECTION. PATIENT ON ROOM AIR TOLERATING WELL NO SIGNS OF SOB, NOT IN DISTRESS. NO COMPLAINS OF PAIN OR DISCOMFORT AT THE MOMENT. ALL DUE MEDICATION IS GIVEN. ALL NEEDS ARE MET. MADE SURE PATIETN IS CLEAN AND COMFORTABLE THROUGH OUT THE NIGHT. SAFETY MEASURE IN PLACED: BED LOCKED AND IN LOWEST POSITION, SIDE RAILS UP X3, BED SIDE TABLE AND CALL LIGHT WITHIN PATIENT REACH, HOB SLIGHTLY ELEVATED. WILL ENDORSE TO NEXT SHIFT NURSE FOR CONTINUITY OF CARE.
[2022-11-18 07:00] VITALS: BP 141/69
--- NOTE | 2022-11-18 07:10 | NUR ---
RN OPENING NOTE- PT IN BED ASLEEP, EASILY AWAKENED A/OX4. ABLE TO MAKE NEEDS KNOWN. IV ACCESS ON RIGHT ARM #20 . RIGHT UPPER ARM HD CATHETER DRESSING NOTED TO BE CLEAN, NOT BLEEDING NON FUNCTIONING ENDORSED. WITH RIGHT IJ HD CATHETER . PATIENT ON ROOM AIR TOLERATING WELL NO SIGNS OF SOB, NOT IN DISTRESS. NO COMPLAINS OF PAIN OR DISCOMFORT AT THE MOMENT. ALL DUE MEDICATION IS GIVEN. ALL NEEDS ARE MET. MONITOR ASSIST
[2022-11-18] MEDS ORDERED: MORPHINE SULFATE INJ 4 MG/ML DISP.SYRIN IM PRN (08:00)
[2022-11-18] MEDS: hydrALAZINE HCL 50 MG TABLET PO SCH ×2 (08:47→17:00)
[2022-11-18] MEDS: predniSONE 20 MG TABLET PO SCH (08:47)
[2022-11-18] MEDS: CARVEDILOL 6.25 MG TABLET PO SCH ×2 (08:47→21:20)
[2022-11-18] MEDS: APIXABAN 2.5 MG TABLET PO SCH ×2 (08:48→17:00)
[2022-11-18] MEDS: NEPRO VAN 237 ML CAN PO SCH (08:48)
[2022-11-18] MEDS: ARIPIPRAZOLE 5 MG TABLET PO SCH (08:57)
[2022-11-18] MEDS: MINERAL OIL/PETROL OINT 396 GM JAR TP SCH ×2 (09:00→21:00)
[2022-11-18] MEDS: FLUTICASONE PROPIONATE 16 GM BOTTLE NS SCH (09:00)
[2022-11-18] MEDS: NEOMY SULF/BACITRAC ZN/POLY 15 GM TUBE TP SCH (09:00)
[2022-11-18] MEDS: MORPHINE SULFATE INJ 4 MG/ML DISP.SYRIN IV PRN (13:57)
--- NOTE | 2022-11-18 14:00 | NUR ---
JUANITO DOW- PT TO SURGICAL SUITE FOR PERMACATH
[2022-11-18] MEDS ORDERED: MORPHINE SULFATE INJ 4 MG/ML DISP.SYRIN IV PRN ×2 (16:00)
[2022-11-18] MEDS ORDERED: hydrALAZINE HCL IV 20 MG VIAL ONE (17:55)
[2022-11-18] MEDS ORDERED: LABETALOL HCL IV 100MG VIAL ONE (17:56)
--- NOTE | 2022-11-18 18:42 | NUR ---
RN NOTE- CLOSING NOTE - RETURNED FROM RT [facility] PERMACATH PLACEMENT AT THIS TIME . PT BP - WAS 180/102. HYDRALAZINE 5MG AND LABETALOL 5MG IVP ADMINISTERED IN RECOVERY. BP - 148/ 98. AOX4. O2 AT 2LPM VIA NC. MADE COMFORTABLE. HD NURSE IN ROOM TO BEGIN HD AT THIS TIME. SIDE RAILS UP, CALL LIGHT IN REACH. MONITOR / ASSIST
--- NOTE | 2022-11-18 19:30 | NUR ---
MS GREGORY INITIAL NOTES Received report from am nurse and seen patient in bed awake and alert , no signs of any discomfort or any acute distress noted. Dialysis still going on and tolerated well by the patient. Re-orient where she at and how to used the call light system. kept her warm and comfortable at all times. will continue monitoring.
--- NOTE | 2022-11-18 19:55 | NUR ---
MS COLT NOTES PT CHECKED DIALYSIS TREATMENT DONE , PT DENIES ANY PAIN OR ANY DISCOMFORT NOTED. LEFT ARM HAVE BANDAGE DRY AND INTACT. DIALYSIS CATHETER ON HER RIGHT UPPER CHEST . 2 LITERS OUTPUT PER DIALYSIS NURSE. WILL CONTINUE MONITORING.
[2022-11-18 20:00] VITALS: BP 165/74
[2022-11-18] MEDS: DIAZEPAM 5 MG TABLET PO SCH (21:21)
[2022-11-19] VITALS (14 sets, daily range): BP systolic 113–139; BP diastolic 52–85
--- NOTE | 2022-11-19 | NUR ---
MS COLT NOTES PATIENT REMAINS SLEEPING BUT AROUSE EASILY , NO SIGNS OF ANY DISCOMFORT OR ANY ACUTE DISTRESS NOTED. KEPT HER WARM AND COMFORTABLE AT ALL TIMES. WILL CONTINUE MONITORING.
[2022-11-19 06:05] LABS: BASOPHILS % (AUTO) 0.4 % (0.0-2.0); EOSINOPHILS % (AUTO) 0.6 % (0.0-6.0); HEMATOCRIT 22 % (33-45); LYMPHOCYTES # (AUTO) 0.6 K/uL (0.8-4.8); LYMPHOCYTES % (AUTO) 4.5 % (20.0-44.0); MEAN CORPUSCULAR HGB CONC 32 g/dl (31.0-36.0); MEAN CORPUSCULAR VOLUME 88 fL (82-100); MONOCYTES # (AUTO) 1.7 K/uL (0.1-1.30); MONOCYTES % (AUTO) 12.5 % (2.0-12.0); NEUTROPHILS # (AUTO) 11.2 K/uL (1.8-8.9); PLATELET COUNT (AUTO) 142 K/uL (150-450); RED BLOOD CELL COUNT(AUTO) 2.48 MIL/uL (4.0-5.2); WHITE BLOOD COUNT (AUTO) 13.7 K/uL (4.3-11.0)
[2022-11-19 06:12] LABS: CALCIUM, SERUM 9.1 mg/dL (8.5-10.1); CREATININE 5.3 mg/dL (0.6-1.3); POTASSIUM 4.6 mmol/L (3.5-5.1)
[2022-11-19 07:04] LABS: HEMOGLOBIN 6.9 g/dL (11.5-14.8)
--- NOTE | 2022-11-19 07:57 | NUR ---
RN OPENING NOTE PT IN BED ASLEEP, EASILY AWAKENED A/OX4. ABLE TO MAKE NEEDS KNOWN. IV ACCESS ON RIGHT ARM #20, NOT INTACT, WILL INSERT ANOTHER ON. RIGHT UPPER ARM HD CATHETER DRESSING NOTED TO BE CLEAN, NOT BLEEDING NON FUNCTIONING ENDORSED. WITH RIGHT IJ HD CATHETER . PATIENT ON ROOM AIR TOLERATING WELL NO SIGNS OF SOB, NOT IN DISTRESS. NO COMPLAINS OF PAIN OR DISCOMFORT AT THE MOMENT. WILL CONTINUE TO MONITOR.
[2022-11-19] MEDS: predniSONE 20 MG TABLET PO SCH (08:59)
[2022-11-19] MEDS: CARVEDILOL 6.25 MG TABLET PO SCH ×3 (08:59→20:50)
[2022-11-19] MEDS: ARIPIPRAZOLE 5 MG TABLET PO SCH (08:59)
[2022-11-19] MEDS: hydrALAZINE HCL 50 MG TABLET PO SCH ×2 (09:00→17:09)
[2022-11-19] MEDS: FLUTICASONE PROPIONATE 16 GM BOTTLE NS SCH (09:00)
[2022-11-19] MEDS: NEOMY SULF/BACITRAC ZN/POLY 15 GM TUBE TP SCH (09:00)
[2022-11-19] MEDS: MINERAL OIL/PETROL OINT 396 GM JAR TP SCH ×2 (09:00→20:46)
--- NOTE | 2022-11-19 09:05 | NUR ---
WOUND CARE CONSULT: PT SEEN FOR LEFT ARM SURGICAL SITE TO EVALUATE FOR NEGATIVE PRESSURE WOUND THERAPY. WOUND BLEEDING AND PT BECAME ANGRY AND IRRITABLE, CURSING AT STAFF. DR RODRÍGUEZ CALLED AND WOUND PACKED TODAY WITH IODOFORM PACKING, COVERED WITH GAUZE, KERLIX AND WHITNEY WRAP. ELEVATED ON PILLOW. PT TOLERATED FAIRLY WELL. MEDELA NPWT DEVICE TO BE APPLIED TOMORROW. DISCUSSED WITH PMD, PRINTED CIRCUIT BOARD PANELS TRIMMER AND MOTOR VEHICLE OPERATOR ROAD SUPERVISOREstefany SIGALA IN AGREEMENT WITH PLAN OF CARE.
[2022-11-19] MEDS: NEPRO VAN 237 ML CAN PO SCH (09:19)
[2022-11-19 14:12] LABS: BAND % (MANUAL) 1 % (0.0-5.0); EOSINOPHILS % (MANUAL) 1 % (0-4); LYMPHOCYTES % (MANUAL) 7 % (16-48); MONOCYTES % (MANUAL) 12 % (0-11.0); NEUTROPHILS % (MANUAL) 79 (42-76)
--- NOTE | 2022-11-19 14:40 | NUR ---
RN NOTES BLOOD TRANSFUSION STARTED, MONITORED FREQUENTLY FOR COMPLICATIONS. VITALS TAKEN AND RECORDED. WILL MONITOR.
--- NOTE | 2022-11-19 16:45 | NUR ---
RN NOTES Patient remains stable after blood transfusion, no complications encountered, no signs of pain observed, second bag of PRBC started, will monitor.
--- NOTE | 2022-11-19 19:00 | NUR ---
RN CLOSING NOTES PT IN BED ASLEEP, EASILY AWAKENED A/OX4. ABLE TO MAKE NEEDS KNOWN. IV ACCESS ON RIGHT LOWER ARM #20 INTACT. RIGHT UPPER ARM HD CATHETER DRESSING NOTED TO BE CLEAN, NOT BLEEDING NON FUNCTIONING ENDORSED. PATIENT ON ROOM AIR TOLERATING WELL NO SIGNS OF SOB, NOT IN DISTRESS. NO COMPLAINS OF PAIN OR DISCOMFORT AT THE MOMENT. S/P BLOOD TRANSFUSION OF TWO PACK RBC, NO COMPLIICATIONS NOTED. SAFETY MEASURES MAINTAINED. BED IN LOWEST POSITION. SIDE RAILS UP X2. CALL LIGHT WITHIN REACH. ALL NEEDS MET ENDORSE TO INCOMING SHIFT.
--- NOTE | 2022-11-19 19:43 | NUR ---
MS RN OPENING NOTE PATIENT AWAKE IN BED, ALERT/ORIENTED X 4, PT ABLE TO MAKE NEEDS KNOWN. PATIENT STABLE ON 2 LPM OF O2 VIA NASAL CANNULA, NO S/S OF DISTRESS OR SOB NOTED, BREATHING EVEN AND UNLABORED. ASSISTED PATIENT TO BATHROOM WITH SBA, STEADY GAIT. JOSE DRESSING C/D/I. RIGHT CHEST WALL PERMACATH IN PLACE. IV ACCESS ON RIGHT ARM #20G INTACT AND SALINE LOCKED. SAFETY MEASURES IN PLACE: CALL LIGHT WITHIN REACH, SIDE RAILS UP X 2, BED LOCKED IN LOWEST POSITION, HOB ELEVATED, BED ALARM ON. WILL CONTINUE TO MONITOR PATIENT
[2022-11-19 20:40] LABS: HEMOGLOBIN 9.2 g/dL (11.5-14.8)
--- NOTE | 2022-11-19 20:51 | NUR ---
MS RN NOTE ATTEMPTED TO GIVE PATIENT COREG 6.25 MG BUT PATIENT REFUSED AND STATED "STOP GIVING ME ALL THESE MEDICATIONS" Addendum: 11/19/22 at 2054 by SOURAV LAURENT RN WASTED MEDICATION IN RX DESTROYER
[2022-11-19] MEDS: DIAZEPAM 5 MG TABLET PO SCH (22:02)
[2022-11-19] MEDS: MORPHINE SULFATE INJ 4 MG/ML DISP.SYRIN IV PRN (23:02)
[2022-11-20 05:50] LABS: BASOPHILS % (AUTO) 0.3 % (0.0-2.0); EOSINOPHILS % (AUTO) 0.1 % (0.0-6.0); HEMATOCRIT 32 % (33-45); HEMOGLOBIN 10.3 g/dL (11.5-14.8); LYMPHOCYTES # (AUTO) 0.4 K/uL (0.8-4.8); LYMPHOCYTES % (AUTO) 2.9 % (20.0-44.0); MEAN CORPUSCULAR HGB CONC 32 g/dl (31.0-36.0); MEAN CORPUSCULAR VOLUME 89 fL (82-100); MONOCYTES # (AUTO) 1.3 K/uL (0.1-1.30); MONOCYTES % (AUTO) 8.6 % (2.0-12.0); NEUTROPHILS # (AUTO) 13.4 K/uL (1.8-8.9); NEUTROPHILS % (AUTO) 88.1 % (43.0-81.0); PLATELET COUNT (AUTO) 137 K/uL (150-450); WHITE BLOOD COUNT (AUTO) 15.2 K/uL (4.3-11.0)
[2022-11-20 06:47] LABS: CALCIUM, SERUM 8.7 mg/dL (8.5-10.1); CREATININE 6.8 mg/dL (0.6-1.3)
--- NOTE | 2022-11-20 06:58 | NUR ---
MS RN CLOSING NOTES PATIENT SLEEPING IN BED, ALERT/ORIENTED X 3, PT ABLE TO MAKE NEEDS KNOWN. PATIENT STABLE ON 2 LPM OF O2 VIA NASAL CANNULA, NO S/S OF DISTRESS OR SOB NOTED, BREATHING EVEN AND UNLABORED. JOSE DRESSING AND LEFT KNEE C/D/I. RIGHT CHEST WALL PERMACATH IN PLACE. IV ACCESS ON RIGHT ARM #20G INTACT AND SALINE LOCKED. MEDICATIONS GIVEN ORDERED, PT NEEDS MET THROUGHOUT SHIFT. SAFETY MEASURES IN PLACE: CALL LIGHT WITHIN REACH, SIDE RAILS UP X 2, BED LOCKED IN LOWEST POSITION, HOB ELEVATED, BED ALARM ON. WILL ENDORSE TO DAYSHIFT RN FOR CONTINUITY OF CARE
--- NOTE | 2022-11-20 07:45 | NUR ---
MS RN OPENING NOTES PATIENT SLEEPING IN BED, ALERT/ORIENTED X 3, PT ABLE TO MAKE NEEDS KNOWN. PATIENT ON 2 LPM OF O2 VIA NASAL CANNULA, NO S/S OF DISTRESS OR SOB NOTED, BREATHING EVEN AND UNLABORED. JOSE DRESSING AND LEFT KNEE C/D/I. RIGHT CHEST WALL PERMACATH IN PLACE. IV ACCESS ON RIGHT ARM #20G INTACT AND SALINE LOCKED. SAFETY MEASURES IN PLACE: CALL LIGHT WITHIN REACH, SIDE RAILS UP X 2, BED LOCKED IN LOWEST POSITION, HOB ELEVATED, BED ALARM ON. WILL CONTINUE TO MONITOR.
[2022-11-20] MEDS: FLUTICASONE PROPIONATE 16 GM BOTTLE NS SCH (08:17)
[2022-11-20] MEDS: MINERAL OIL/PETROL OINT 396 GM JAR TP SCH ×2 (08:17→21:49)
[2022-11-20] MEDS: NEPRO VAN 237 ML CAN PO SCH (08:18)
[2022-11-20] MEDS: NEOMY SULF/BACITRAC ZN/POLY 15 GM TUBE TP SCH (08:18)
[2022-11-20] MEDS: ARIPIPRAZOLE 5 MG TABLET PO SCH (09:43)
[2022-11-20] MEDS: CARVEDILOL 6.25 MG TABLET PO SCH ×2 (09:44→21:48)
[2022-11-20] MEDS: predniSONE 20 MG TABLET PO SCH (09:45)
[2022-11-20] MEDS: hydrALAZINE HCL 50 MG TABLET PO SCH ×2 (09:46→16:32)
--- NOTE | 2022-11-20 10:30 | NUR ---
RN NOTES Patient Procalcitonin was 12.30, notifed Pascual Mijares EM PHYSICIAN with new orders of blood culture test. Will monitor/
--- NOTE | 2022-11-20 11:08 | NUR ---
WOUND CARE FOLLOW UP: PT SEEN FOR APPLICATION OF MEDELA NEGATIVE PRESSURE WOUND THERAPY DEVICE. WOUND HAS RED GRANULATION TISSUE WITH SOME YELLOW TISSUE, SMALL AMOUNT OF SEROSANGUINOUS DRAINAGE, NO ODOR. THERE ARE FRAGILE AREAS OF SKIN PROXIMALLY AND DISTALLY WITH MARIEL PROXIMALLY AND DISTALLY. SOME EDEMA NOTED. SKIN PREP AND DRAPE APPLIED TO PERIWOUND AREAS, BLACK FOAM TO WOUND (ONE PIECE), AND DEVICE AT 125mmHg. PT TOLERATED WELL. UPON DISCHARGE, NURSING STAFF TO REMOVE ALL DRESSINGS, CLEANSE WITH NS, PACK GENTLY WITH SALINE MOISTENED KERLIX, COVER WITH GAUZE, ABD PAD AND SECURE WITH KERLIX. (ARM WAS ELEVATED ON PILLOW). WILL FOLLOW. NEXT DRESSING CHANGE PLANNED FOR THURSDAY 11/23. RECOMMEND SURGICAL FOLLOW UP. MD IN AGREEMENT WITH PLAN OF CARE.
--- NOTE | 2022-11-20 12:00 | NUR ---
RN NOTES PATIENT HAVE HAD DIALYSIS WITH TOTAL OF 2000ML OUTPUT, NO RESPIRATORY OR CARDIAC DISTRESS NOTED, NO COMPLICATIONS NOTED. WILL MONITOR.
[2022-11-20 16:00] VITALS: BP 140/73
[2022-11-20] MEDS: ACETAMINOPHEN 325 MG TABLET PO PRN (16:31)
[2022-11-20] MEDS: MORPHINE SULFATE INJ 4 MG/ML DISP.SYRIN IV PRN (16:31)
[2022-11-20] MEDS ORDERED: VANCOMYCIN 1 GM in IV D5W 250ml IV ONE (18:00)
--- NOTE | 2022-11-20 18:32 | NUR ---
MS RN CLOSING NOTES PT IN BED ASLEEP, EASILY AWAKENED A/OX4. ABLE TO MAKE NEEDS KNOWN. PATIENT STABLE ON 2 LPM OF O2 VIA NASAL CANNULA, NO S/S OF DISTRESS OR SOB NOTED, BREATHING EVEN AND UNLABORED. IV ACCESS ON RIGHT LOWER ARM #20 INTACT. RIGHT CHEST WALL PERMACATH IN PLACE, DRESSING WAS CHANGED BY HD NURSE. NEGATIVE PRESSURE WOUND DEVICE APPLIED BY WOUND CARE NURSE. PATIENT WAS FEBRILE IN THE AFTERNOON WITH TEMP OF 99.8,PRN TYLENOL GIVEN. PRN MORPHINE WAS ALSO GIVEN FOR PAIN . SAFETY MEASURES MAINTAINED. BED IN LOWEST POSITION. SIDE RAILS UP X2. CALL LIGHT WITHIN REACH. ALL NEEDS MET ENDORSE TO INCOMING SHIFT.
--- NOTE | 2022-11-20 19:40 | NUR ---
MS RN OPENING NOTE RECEIVED PATIENT SLEEPING IN BED. PATIENT ALERT/ORIENTED X 3, ABLE TO MAKE NEEDS KNOWN. PATIENT ON O2 2 LPM VIA NASAL CANNULA, NO S/S OF DISTRESS OR SOB NOTED. BREATHING EVEN AND UNLABORED. LEFT UA DRESSING AND LEFT KNEE C/D/I. RIGHT CHEST WALL PERMACATH IN PLACE. IV ACCESS ON RIGHT ARM #20G INTACT AND SALINE LOCKED. SAFETY MEASURES IN PLACE: CALL LIGHT WITHIN REACH, SIDE RAILS UP X 2, BED LOCKED IN LOWEST POSITION, HOB ELEVATED, BED ALARM ON. WILL CONTINUE TO MONITOR PATIENT.
[2022-11-20 20:00] VITALS: BP 106/56
[2022-11-20] MEDS: DIAZEPAM 5 MG TABLET PO SCH (21:48)
--- NOTE | 2022-11-21 07:02 | NUR ---
MS RN CLOSING NOTE LEFT PATIENT SLEEPING IN BED. PATIENT ALERT/ORIENTED X 3, ABLE TO MAKE NEEDS KNOWN. PATIENT ON O2 2 LPM VIA NASAL CANNULA, NO S/S OF DISTRESS OR SOB NOTED. BREATHING EVEN AND UNLABORED. LEFT UA DRESSING AND LEFT KNEE C/D/I. RIGHT CHEST WALL PERMACATH IN PLACE. IV ACCESS ON RIGHT ARM #20G INTACT AND SALINE LOCKED. PT REFUSES TO GET CLEANED THIS MORNING. SAFETY MEASURES IN PLACE: CALL LIGHT WITHIN REACH, SIDE RAILS UP X 2, BED LOCKED IN LOWEST POSITION, HOB ELEVATED, BED ALARM ON. WILL ENDORSE PATIENT TO AM SHIFT NURSE FOR SEAN.
--- NOTE | 2022-11-21 07:27 | NUR ---
MS RN OPENING NOTE RECEIVED PATIENT SLEEPING IN BED, EASILY AWAKEN. A/O X 3, ABLE TO MAKE NEEDS KNOWN. ON O2 AT 2LPM VIA NASAL CANNULA, SATURATING WELL. BREATHING EVEN AND UNLABORED. LEFT UA AND LEFT KNEE DRESSING, C/D/I. RIGHT CHEST WALL PERMACATH IN PLACE. IV ACCESS ON RIGHT ARM #20G, SL. SAFETY MEASURES IN PLACE: CALL LIGHT AND TRAY TABLE WITHIN EASY REACH, SIDE RAILS UP X 2, BED LOCKED IN LOWEST POSITION. WILL CONTINUE TO MONITOR.
[2022-11-21 08:00] VITALS: BP 138/69
--- NOTE | 2022-11-21 08:30 | NUR ---
RN NOTE Pt refused to eat her breakfast, encouraged pt to eat her food but still insist. Pt verbalized "I will eat when I want to eat". Will continue to monitor.
[2022-11-21] MEDS: FLUTICASONE PROPIONATE 16 GM BOTTLE NS SCH ×2 (09:00→09:40)
[2022-11-21] MEDS: NEPRO VAN 237 ML CAN PO SCH (09:00)
[2022-11-21] MEDS: ARIPIPRAZOLE 5 MG TABLET PO SCH ×2 (09:00→09:38)
--- NOTE | 2022-11-21 09:20 | NUR ---
RN NOTE Patient refused Abilify 10mg/2tab po due at 0900, medication opened and discarded.
[2022-11-21] MEDS: CARVEDILOL 6.25 MG TABLET PO SCH ×2 (09:38→20:51)
[2022-11-21] MEDS: predniSONE 20 MG TABLET PO SCH (09:39)
[2022-11-21] MEDS: hydrALAZINE HCL 50 MG TABLET PO SCH ×2 (09:39→17:18)
[2022-11-21] MEDS: MINERAL OIL/PETROL OINT 396 GM JAR TP SCH ×2 (09:40→20:51)
[2022-11-21] MEDS: NEOMY SULF/BACITRAC ZN/POLY 15 GM TUBE TP SCH (09:41)
[2022-11-21 17:39] VITALS: BP 116/64
--- NOTE | 2022-11-21 18:48 | NUR ---
MS RN CLOSING NOTE PATIENT SLEEPING IN BED, EASILY AWAKEN. A/O X 3, ABLE TO MAKE NEEDS KNOWN. ON O2 AT 2LPM VIA NASAL CANNULA, SATURATING WELL. NO C/O PAIN/DISCOMFORT WITHIN THE SHIFT. LEFT UA AND LEFT KNEE DRESSING, C/D/I. RIGHT CHEST WALL PERMACATH IN PLACE. IV ACCESS ON RIGHT ARM #20G, SL. PT REFUSED TO BE REPOSITIONED. SAFETY MEASURES IN PLACE: CALL LIGHT AND TRAY TABLE WITHIN EASY REACH, SIDE RAILS UP X 2, BED LOCKED IN LOWEST POSITION. WILL ENDORSE SEAN TO PLANT MANAGER.
--- NOTE | 2022-11-21 19:44 | NUR ---
MS SCOTT CLOSING NOTE PATIENT SLEEPING IN BED, ALERT/ORIENTED X 3, PT ABLE TO MAKE NEEDS KNOWN. PATIENT STABLE ON 2 LPM OF O2 VIA NASAL CANNULA, NO S/S OF DISTRESS OR SOB NOTED, BREATHING EVEN AND UNLABORED. JOSE DRESSING WOUND VAC IN PLACE. LEFT KNEE DRESSING C/D/I. RIGHT CHEST WALL PERMACATH IN PLACE. IV ACCESS ON RIGHT ARM #20G INTACT AND SALINE LOCKED. SAFETY MEASURES IN PLACE: CALL LIGHT WITHIN REACH, SIDE RAILS UP X 2, BED LOCKED IN LOWEST POSITION, HOB ELEVATED, BED ALARM ON. WILL CONTINUE TO MONITOR PATIENT Addendum: 11/22/22 at 0629 by SOURAV LAURENT RN MS SCOTT OPENING NOTE
[2022-11-21 20:00] VITALS: BP 126/63
[2022-11-21] MEDS: DIAZEPAM 5 MG TABLET PO SCH (22:45)
[2022-11-22 06:05] LABS: BASOPHILS % (AUTO) 0.2 % (0.0-2.0); EOSINOPHILS % (AUTO) 0.5 % (0.0-6.0); HEMATOCRIT 28 % (33-45); HEMOGLOBIN 9.1 g/dL (11.5-14.8); LYMPHOCYTES # (AUTO) 0.3 K/uL (0.8-4.8); LYMPHOCYTES % (AUTO) 2.2 % (20.0-44.0); MEAN CORPUSCULAR HGB CONC 33 g/dl (31.0-36.0); MEAN CORPUSCULAR VOLUME 86 fL (82-100); MONOCYTES # (AUTO) 1.1 K/uL (0.1-1.30); MONOCYTES % (AUTO) 7.6 % (2.0-12.0); NEUTROPHILS % (AUTO) 89.5 % (43.0-81.0); PLATELET COUNT (AUTO) 162 K/uL (150-450); RED BLOOD CELL COUNT(AUTO) 3.21 MIL/uL (4.0-5.2); WHITE BLOOD COUNT (AUTO) 14.5 K/uL (4.3-11.0)
[2022-11-22 06:17] LABS: CALCIUM, SERUM 8.5 mg/dL (8.5-10.1); CREATININE 6.9 mg/dL (0.6-1.3); POTASSIUM 5.5 mmol/L (3.5-5.1)
--- NOTE | 2022-11-22 06:30 | NUR ---
MS RN CLOSING NOTE PATIENT SLEEPING IN BED, ALERT/ORIENTED X 3, PT ABLE TO MAKE NEEDS KNOWN. PATIENT STABLE ON 2 LPM OF O2 VIA NASAL CANNULA, NO S/S OF DISTRESS OR SOB NOTED, BREATHING EVEN AND UNLABORED. JOSE DRESSING WOUND VAC IN PLACE WITH SCANT BLOOD IN CANISTER. LEFT KNEE DRESSING C/D/I. RIGHT CHEST WALL PERMACATH IN PLACE. IV ACCESS ON RIGHT ARM #20G INTACT AND SALINE LOCKED. NO SIGNIFICANT CHANGE THIS SHIFT, PT SLEPT WELL THROUGH THE NIGHT, MEDICATIONS GIVEN ORDERED. SAFETY MEASURES IN PLACE: CALL LIGHT WITHIN REACH, SIDE RAILS UP X 2, BED LOCKED IN LOWEST POSITION, HOB ELEVATED, BED ALARM ON. WILL ENDORSE TO DAYSHIFT RN FOR CONTINUITY OF CARE
[2022-11-22 07:00] VITALS: BP 131/71
[2022-11-22] MEDS: ARIPIPRAZOLE 5 MG TABLET PO SCH (09:00)
[2022-11-22] MEDS: NEPRO VAN 237 ML CAN PO SCH (09:00)
[2022-11-22] MEDS: CARVEDILOL 6.25 MG TABLET PO SCH ×2 (09:00→20:34)
[2022-11-22] MEDS: hydrALAZINE HCL 50 MG TABLET PO SCH ×2 (09:00→17:42)
[2022-11-22 10:00] VITALS: BP 131/71
[2022-11-22] MEDS: predniSONE 20 MG TABLET PO SCH (10:43)
[2022-11-22] MEDS: FLUTICASONE PROPIONATE 16 GM BOTTLE NS SCH (10:50)
[2022-11-22] MEDS: MINERAL OIL/PETROL OINT 396 GM JAR TP SCH ×2 (10:50→20:34)
[2022-11-22] MEDS: NEOMY SULF/BACITRAC ZN/POLY 15 GM TUBE TP SCH (10:50)
[2022-11-22] MEDS: ACETAMINOPHEN 325 MG TABLET PO PRN (11:21)
[2022-11-22] MEDS: VANCOMYCIN POST DIALYSIS 500MG IV PRN ×2 (14:14)
[2022-11-22 16:31] VITALS: BP 152/67
--- NOTE | 2022-11-22 18:52 | NUR ---
CHANGE OF SHIFT REPORT PT RESTING COMFORTABLY IN BED WITH EYES CLOSED. NO S/S OR C/O PAIN OR DISTRESS NOTED SIDE RAILS UP X2, CALL LIGHT LEFT WITHIN REACH. PT KEPT CLEAN, DRY, AND COMFORTABLE. NO SIGNIFICANT CHANGES SINCE PREVIOUS SHIFT. WILL GIVE REPORT TO LOLITA SCOTT.
--- NOTE | 2022-11-22 19:57 | NUR ---
MS RN OPENING NOTE PATIENT SLEEPING IN BED, EASILY AWAKENED, ALERT/ORIENTED X 3, PT ABLE TO MAKE NEEDS KNOWN. PATIENT STABLE ON 2 LPM OF O2 VIA NASAL CANNULA, NO S/S OF DISTRESS OR SOB NOTED, BREATHING EVEN AND UNLABORED. JOSE DRESSING WOUND VAC IN PLACE WITH NEGATIVE PRESSURE -125 MMHG. LEFT KNEE DRESSING C/D/I. RIGHT CHEST WALL PERMACATH IN PLACE. IV ACCESS ON RIGHT ARM #20G INTACT AND SALINE LOCKED. SAFETY MEASURES IN PLACE: CALL LIGHT WITHIN REACH, SIDE RAILS UP X 2, BED LOCKED IN LOWEST POSITION, HOB ELEVATED, BED ALARM ON. WILL CONTINUE TO MONITOR PATIENT
[2022-11-22 20:00] VITALS: BP 140/68
[2022-11-22] MEDS: DIAZEPAM 5 MG TABLET PO SCH (22:39)
--- NOTE | 2022-11-23 | NUR ---
MS RN NOTE PATIENT NOTED WITH INCREASED LEFT HAND PITTING EDEMA +4. WAS LIKE A +2 LAST NIGHT WHEN I HAD PATIENT. NOTIFIED CLIENT EXPERIENCE ADMINISTRATOR MD GUILLAUME DELGADO
--- NOTE | 2022-11-23 06:34 | NUR ---
CARPENTRY FOREMAN CLOSING NOTE PATIENT SLEEPING IN BED, EASILY AWAKENED, ALERT/ORIENTED X 3, PT ABLE TO MAKE NEEDS KNOWN. PATIENT STABLE ON 2 LPM OF O2 VIA NASAL CANNULA, NO S/S OF DISTRESS OR SOB NOTED, BREATHING EVEN AND UNLABORED. JOSE DRESSING WOUND VAC IN PLACE WITH NEGATIVE PRESSURE -125 MMHG, INCREASED LEFT HAND EDEMA NOTED, ADJUNCT PHILOSOPHY FACULTY GUILLAUME DELGADO NOTIFIED. LEFT KNEE DRESSING C/D/I. RIGHT CHEST WALL PERMACATH IN PLACE. IV ACCESS ON RIGHT ARM #20G INTACT AND SALINE LOCKED. MEDICATIONS GIVEN ORDERED, PT NEEDS MET THROUGHOUT SHIFT. SAFETY MEASURES IN PLACE: CALL LIGHT WITHIN REACH, SIDE RAILS UP X 2, BED LOCKED IN LOWEST POSITION, HOB ELEVATED, BED ALARM ON. WILL ENDORSE TO DAYSHIFT RN FOR CONTINUITY OF CARE
--- NOTE | 2022-11-23 07:36 | NUR ---
RN OPENING NOTE- PT SLEEPING, EASILY AWAKENED THOUGH LETHARGIC/SOMNOLENT, ALERT/ORIENTED X 3, PT ABLE TO MAKE NEEDS KNOWN. PATIENT STABLE ON 2 LPM OF O2 VIA NC, JOSE DRESSING WOUND VAC IN PLACE WITH NEGATIVE PRESSURE, SCANT AMT SANGUINOUS DRAINAGE NOTED, LEFT KNEE DRESSING C/D/I. RIGHT CHEST WALL PERMACATH IN PLACE. IV ACCESS ON RIGHT ARM #20G. SAFETY MEASURES IN PLACE: CALL LIGHT WITHIN REACH, SIDE RAILS UP X 2, BED LOCKED IN LOWEST POSITION, HOB ELEVATED, BED ALARM ON.MONITOR / ASSIST
[2022-11-23 08:00] VITALS: BP 142/64
[2022-11-23 08:11] LABS: CALCIUM, SERUM 8.6 mg/dL (8.5-10.1); CREATININE 4.7 mg/dL (0.6-1.3); POTASSIUM 4.7 mmol/L (3.5-5.1)
[2022-11-23] MEDS: NEOMY SULF/BACITRAC ZN/POLY 15 GM TUBE TP SCH (08:53)
[2022-11-23] MEDS: MINERAL OIL/PETROL OINT 396 GM JAR TP SCH ×2 (08:53→21:23)
[2022-11-23] MEDS: predniSONE 20 MG TABLET PO SCH (08:59)
[2022-11-23] MEDS: CARVEDILOL 6.25 MG TABLET PO SCH ×2 (08:59→21:22)
[2022-11-23] MEDS: FLUTICASONE PROPIONATE 16 GM BOTTLE NS SCH (08:59)
[2022-11-23] MEDS: NEPRO VAN 237 ML CAN PO SCH (08:59)
[2022-11-23] MEDS: hydrALAZINE HCL 50 MG TABLET PO SCH ×2 (08:59→17:46)
[2022-11-23] MEDS: ARIPIPRAZOLE 5 MG TABLET PO SCH (08:59)
--- NOTE | 2022-11-23 09:00 | NUR ---
RN NOTE- RESPIRATORY THERAPY DIRECTOR AT BEDSIDE. REQUESTS HOLD AM LABS. COMPLIED
--- NOTE | 2022-11-23 09:04 | NUR ---
WOUND CARE FOLLOW UP: PT SEEN FOR LEFT UPPER ARM MEDELA NEGATIVE PRESSURE WOUND THERAPY DEVICE DRESSING CHANGE. WOUND MEASURES 1.5CM X 2CM X 1.5CM AND IS RED IN COLOR WITH SMALL AMOUNT OF SEROSANGUINOUS DRAINAGE, NO ODOR. THERE ARE FRAGILE AREAS OF SLIGHTLY OPEN SKIN PROXIMALLY AND DISTALLY WELL MARIEL PROXIMALLY AND DISTALLY. FRAGILE AREAS AND ALL PERIWOUND SKIN PROTECTED WITH SKIN PREP AND TRANSPARENT DRAPE, BLACK FOAM TO WOUND. NPWT DEVICE AT 125mmHg. SMALL AMOUNT OF RED DRAINAGE NOTED IN CANISTER. PLAN FOR NEXT DRESSING CHANGE SATURDAY 11/25. PT TOLERATED WELL. RECOMMEND SURGICAL FOLLOW UP.
[2022-11-23] MEDS ORDERED: MORPHINE SULFATE INJ 4 MG/ML DISP.SYRIN IV PRN (14:00)
[2022-11-23 16:00] VITALS: BP 134/77
[2022-11-23] MEDS ORDERED: VANCOMYCIN 1 GM in IV D5W 250ml IV ONE (18:00)
[2022-11-23] MEDS: EPOETIN ALFA-EPBX 4,000 UNIT/ML VIAL IV SCH (18:03)
--- NOTE | 2022-11-23 18:26 | NUR ---
RN CLOSING NOTE- UNCHANGED, PT SLEEPING, LETHARGIC/SOMNOLENT, ALERT/ORIENTED X 3, PT ABLE TO MAKE NEEDS KNOWN. PATIENT STABLE ON 2 LPM OF O2 VIA NC, JOSE DRESSING WOUND VAC IN PLACE WITH NEGATIVE PRESSURE, SCANT AMT SANGUINOUS DRAINAGE NOTED, LEFT KNEE DRESSING C/D/I. RIGHT CHEST WALL PERMACATH IN PLACE. HD COMPLETED TODAY W 2L REMOVED, IV ACCESS ON RIGHT ARM #20G. SAFETY MEASURES IN PLACE: CALL LIGHT WITHIN REACH, SIDE RAILS UP X 2, BED LOCKED IN LOWEST POSITION, HOB ELEVATED, BED ALARM ON.MONITOR / ASSIST
--- NOTE | 2022-11-23 19:22 | NUR ---
RN OPENING NOTE RECEIVED PT IN BED, SLEEPING, AND EASILY AWAKENED. PT ALERT/ORIENTED X 3, ABLE TO MAKE NEEDS KNOWN. PATIENT STABLE ON 2 LPM OF O2 VIA NC. LEFT UA DRESSING WOUND VAC IN PLACE WITH NEGATIVE PRESSURE, DRESSING CLEAN, AND DRY, LEFT KNEE DRESSING C/D/I. RIGHT CHEST WALL PERMACATH IN PLACE. IV ACCESS ON RIGHT ARM #20G. SAFETY MEASURES IN PLACE: CALL LIGHT WITHIN REACH, SIDE RAILS UP X 2, BED LOCKED IN LOWEST POSITION, HOB ELEVATED, BED ALARM ON. WILL CONTINUE TO MONITOR PT.
[2022-11-23] MEDS: ACETAMINOPHEN 325 MG TABLET PO PRN (21:20)
--- NOTE | 2022-11-23 21:20 | NUR ---
MS RN NOTE PT HAS FEVER, TEMP: 100.8. TYLENOL ADMINISTERED TO PT.
[2022-11-23 22:01] VITALS: BP 106/57
[2022-11-23] MEDS: DIAZEPAM 5 MG TABLET PO SCH (22:21)
--- NOTE | 2022-11-23 23:00 | NUR ---
MS RN NOTE PT HAD FEVER. BUT AFTER GIVING TYLENOL, TEMP DECREASED TO 98.0.
--- NOTE | 2022-11-24 06:30 | NUR ---
RN CLOSING NOTE LEFT PT IN BED, SLEEPING, AND EASILY AWAKENED. PT ALERT/ORIENTED X 3, ABLE TO MAKE NEEDS KNOWN. PATIENT STABLE ON 2 LPM OF O2 VIA NC. LEFT UA DRESSING WOUND VAC IN PLACE WITH NEGATIVE PRESSURE, DRESSING CLEAN, AND DRY, LEFT KNEE DRESSING C/D/I. RIGHT CHEST WALL PERMACATH IN PLACE. IV ACCESS ON RIGHT ARM #20G. SAFETY MEASURES IN PLACE: CALL LIGHT WITHIN REACH, SIDE RAILS UP X 2, BED LOCKED IN LOWEST POSITION, HOB ELEVATED, BED ALARM ON. WILL ENDORSE PT TO AM SHIFT NURSE FOR SEAN.
--- NOTE | 2022-11-24 07:35 | NUR ---
MS RN OPENING NOTE RECEIVED PT IN BED, ASLEEP, EASILY ROUSED. PT ALERT/ORIENTED X 3, ABLE TO MAKE NEEDS KNOWN. PATIENT STABLE ON 2 LPM OF O2 VIA NC. LEFT UA DRESSING WOUND VAC IN PLACE WITH NEGATIVE PRESSURE, DRESSING CLEAN, AND DRY, LEFT KNEE DRESSING C/D/I. RIGHT CHEST WALL PERMACATH IN PLACE. IV ACCESS ON RIGHT ARM #20G, SL, FLUSHING WELL. SAFETY MEASURES IN PLACE: CALL LIGHT WITHIN REACH, SIDE RAILS UP X 2, BED LOCKED IN LOWEST POSITION, HOB ELEVATED, BED ALARM ON, WILL CONT WITH PLAN OF CARE DURING SHIFT.
[2022-11-24 07:59] LABS: CALCIUM, SERUM 8.7 mg/dL (8.5-10.1); CREATININE 4.9 mg/dL (0.6-1.3); POTASSIUM 4.4 mmol/L (3.5-5.1)
[2022-11-24 08:00] VITALS: BP 152/72
--- NOTE | 2022-11-24 08:38 | NUR ---
WOUND CARE: MEDELA NEGATIVE PRESSURE WOUND THERAPY DEVICE ON LEFT UPPER ARM WOUND AT 125mmHg. SMALL AMOUNT DARK RED DRAINAGE IN CANISTER. PLAN NEXT DRESSING CHANGE FOR TOMORROW.
[2022-11-24] MEDS: hydrALAZINE HCL 50 MG TABLET PO SCH ×2 (09:00→16:44)
[2022-11-24] MEDS: CARVEDILOL 6.25 MG TABLET PO SCH ×2 (09:00→22:38)
[2022-11-24] MEDS: FLUTICASONE PROPIONATE 16 GM BOTTLE NS SCH (11:51)
[2022-11-24] MEDS: ARIPIPRAZOLE 5 MG TABLET PO SCH (11:52)
[2022-11-24] MEDS: predniSONE 20 MG TABLET PO SCH (11:54)
[2022-11-24] MEDS: MINERAL OIL/PETROL OINT 396 GM JAR TP SCH ×2 (11:55→22:39)
[2022-11-24] MEDS: NEOMY SULF/BACITRAC ZN/POLY 15 GM TUBE TP SCH (11:55)
[2022-11-24] MEDS: NEPRO VAN 237 ML CAN PO SCH ×2 (11:56→16:50)
[2022-11-24] MEDS: VANCOMYCIN POST DIALYSIS 500MG IV PRN ×2 (13:57)
[2022-11-24] MEDS ORDERED: MORPHINE SULFATE INJ 4 MG/ML DISP.SYRIN IV PRN (14:30)
[2022-11-24 16:00] VITALS: BP 150/63
[2022-11-24] MEDS: PROSOURCE / PROSTAT (PYXIS) 30 ML UDC GT SCH (16:49)
--- NOTE | 2022-11-24 18:40 | NUR ---
MS RN CLOSING NOTES: PT IN BED, ASLEEP, EASILY ROUSED. PT ALERT/ORIENTED X 3, ABLE TO MAKE NEEDS KNOWN. PATIENT STABLE ON 2 LPM OF O2 VIA NC. LEFT UA DRESSING WOUND VAC IN PLACE WITH NEGATIVE PRESSURE, DRESSING CLEAN, AND DRY, LEFT KNEE DRESSING C/D/I. RIGHT CHEST WALL PERMACATH IN PLACE, S/P HD, OUTPUT= 2L. IV ACCESS ON RIGHT ARM #20G, SL, FLUSHING WELL. ALL NEEDS MET, DUE MEDS GIVEN, KEPT PT CLEAN, DRY AND COMFORTABLE. SAFETY MEASURES IN PLACE: CALL LIGHT WITHIN REACH, SIDE RAILS UP X 2, BED LOCKED IN LOWEST POSITION, HOB ELEVATED, BED ALARM ON, WILL ENDORSE TO PM SHIFT.
--- NOTE | 2022-11-24 20:03 | NUR ---
MS/TELE/RN PATIENT IS AWAKE, ORIENTED TO PERSON ONLY UNABLE TO STATE AND PLACE, NO C/O PAIN, NO SIGNS OF DISTRESS NOTED, CALL LIGHT IN REACH, FALL PRECAUTIONS PER PROTOCOL, WILL MONITOR.
[2022-11-24 20:08] VITALS: BP 91/44
[2022-11-24 22:30] VITALS: BP 133/74
[2022-11-24] MEDS: DIAZEPAM 5 MG TABLET PO SCH (22:39)
--- NOTE | 2022-11-25 01:00 | NUR ---
MS/TELE/RN PATIENT IS SLEEPING, NO SIGNS OF DISTRESS NOTED, CALL LIGHT IN REACH, WILL CONTINUE TO MONITOR.
[2022-11-25 03:16] VITALS: BP 165/78
[2022-11-25 05:45] LABS: BASOPHILS % (AUTO) 0.1 % (0.0-2.0); HEMATOCRIT 29 % (33-45); HEMOGLOBIN 9.5 g/dL (11.5-14.8); LYMPHOCYTES # (AUTO) 0.3 K/uL (0.8-4.8); LYMPHOCYTES % (AUTO) 1.7 % (20.0-44.0); MEAN CORPUSCULAR HGB CONC 33 g/dl (31.0-36.0); MEAN CORPUSCULAR VOLUME 88 fL (82-100); MONOCYTES # (AUTO) 0.6 K/uL (0.1-1.30); MONOCYTES % (AUTO) 3.1 % (2.0-12.0); NEUTROPHILS # (AUTO) 17.2 K/uL (1.8-8.9); NEUTROPHILS % (AUTO) 95.1 % (43.0-81.0); PLATELET COUNT (AUTO) 257 K/uL (150-450); WHITE BLOOD COUNT (AUTO) 18.1 K/uL (4.3-11.0)
--- NOTE | 2022-11-25 06:10 | NUR ---
MS/TELE/RN PATIENT IS STILL SLEEPING AT THIS TIME, NO SIGNS OF DISTRESS NOTE, NO CHANGE IN CONDITION, ALL NEEDS ATTENDED AT THIS TIME, WILL CONTINUE TO MONITOR.
[2022-11-25 06:36] LABS: CALCIUM, SERUM 8.7 mg/dL (8.5-10.1); POTASSIUM 4.4 mmol/L (3.5-5.1)
--- NOTE | 2022-11-25 07:30 | NUR ---
MS RN OPENING NOTES: RECEIVED PT IN BED, ASLEEP, EASILY ROUSED. PT ALERT/ORIENTED X 1, PATIENT STABLE ON 2 LPM OF O2 VIA NC. LEFT UA DRESSING WOUND VAC IN PLACE WITH NEGATIVE PRESSURE, DRESSING CLEAN, AND DRY, LEFT KNEE DRESSING C/D/I. RIGHT CHEST WALL PERMACATH IN PLACE. IV ACCESS ON RIGHT ARM #20G, SL, FLUSHING WELL. ALL NEEDS MET, DUE MEDS GIVEN, KEPT PT CLEAN, DRY AND COMFORTABLE. SAFETY MEASURES IN PLACE: CALL LIGHT WITHIN REACH, SIDE RAILS UP X 2, BED LOCKED IN LOWEST POSITION, HOB ELEVATED, BED ALARM ON. WILL ADMINISTER ALL SCHEDULED MEDS, WILL CONTINUE TO MONITOR.
[2022-11-25 08:00] VITALS: BP 122/65
--- NOTE | 2022-11-25 08:54 | NUR ---
WOUND CARE: PT SEEN FOR MEDELA NEGATIVE PRESSURE WOUND THERAPY DEVICE DRESSING CHANGE TO LEFT UPPER ARM. WOUND MEASURES 1CM X 2.3CM X 1.3CM AND IS RED IN COLOR WITH SMALL AMOUNT SEROSANGUINOUS DRAINAGE, NO ODOR. MARIEL NOTED PROXIMALLY AND DISTALLY WITH FRAGILE AREAS OF SKIN PROXIMALLY AND DISTALLY. SKIN PREP AND MEDELA DRAPE APPLIED TO MIRA WOUND AREAS, BLACK FOAM TO WOUND. DEVICE AT 125mmHg. PT TOLERATED WELL.
[2022-11-25] MEDS: hydrALAZINE HCL 50 MG TABLET PO SCH ×3 (09:00→17:00)
[2022-11-25] MEDS: PROSOURCE / PROSTAT (PYXIS) 30 ML UDC GT SCH ×2 (09:00→17:00)
[2022-11-25] MEDS: CARVEDILOL 6.25 MG TABLET PO SCH ×3 (09:00→21:00)
[2022-11-25] MEDS: ARIPIPRAZOLE 5 MG TABLET PO SCH (09:14)
[2022-11-25] MEDS: predniSONE 20 MG TABLET PO SCH (09:15)
--- NOTE | 2022-11-25 09:19 | NUR ---
PT SCHEDULED FOR DIALYSIS. BP 122/65. [place] 65. WILL HOLD BP MEDS
[2022-11-25] MEDS: MINERAL OIL/PETROL OINT 396 GM JAR TP SCH ×2 (09:49→21:53)
[2022-11-25] MEDS: FLUTICASONE PROPIONATE 16 GM BOTTLE NS SCH (09:49)
[2022-11-25] MEDS: NEOMY SULF/BACITRAC ZN/POLY 15 GM TUBE TP SCH (09:50)
[2022-11-25] MEDS: NEPRO VAN 237 ML CAN PO SCH ×2 (09:51→18:40)
[2022-11-25 16:00] VITALS: BP 131/70
--- NOTE | 2022-11-25 19:21 | NUR ---
MS RN CLOSING NOTES: PTRESTING IN BED, EASILY ROUSED. PT ALERT/ORIENTED X 1, PATIENT STABLE ON 2 LPM OF O2 VIA NC. LEFT UA DRESSING WOUND VAC IN PLACE WITH NEGATIVE PRESSURE, DRESSING CLEAN, AND DRY, LEFT KNEE DRESSING C/D/I. RIGHT CHEST WALL PERMACATH IN PLACE. IV ACCESS ON RIGHT ARM #20G, SL, FLUSHING WELL. ALL NEEDS MET, DUE MEDS GIVEN, KEPT PT CLEAN, DRY AND COMFORTABLE. SAFETY MEASURES IN PLACE: CALL LIGHT WITHIN REACH, SIDE RAILS UP X 2, BED LOCKED IN LOWEST POSITION, HOB ELEVATED, BED ALARM ON. WILL ENDORSE TO NEXT SHIFT.
--- NOTE | 2022-11-25 19:30 | NUR ---
MS RN NOTES RECEIVED LYING ON BED WITH HOB ELEVATED,A/O X1,OPEN EYES,O2 2L/NC IN USED TO KEEP O2 SAT ABOVE 90%.S/P REPAIR OF RUPTURED AV FISTULA,WITH DRESSING INTACT AND DRY AND CONNECTED TO VACUUM,SCANTY OUTPUT NOTED.FOR EVERYDAY HD TREATMENT AWAITING FOR HD NURSE.WILL CONTINUE TO MONITOR STATUS.CALL LIGHT IN REACH,NEEDS ANTICIPATED.
[2022-11-25 20:00] VITALS: BP 140/75
--- NOTE | 2022-11-25 21:00 | NUR ---
MS RN NOTES BP MEDS HELD,PT GOING FOR HEMODIALYSIS
--- NOTE | 2022-11-25 23:30 | NUR ---
MS RN NOTES HD TREATMENT STARTED THIS TIME
[2022-11-25] MEDS: DIAZEPAM 5 MG TABLET PO SCH (23:31)
[2022-11-26] MEDS: EPOETIN ALFA-EPBX 4,000 UNIT/ML VIAL IV SCH (00:09)
--- NOTE | 2022-11-26 01:30 | NUR ---
MS RN NOTES HD TREATMENT COMPLETED,TOLERATED WELL 2 HOURS TREATMENT TAKEN OUT 2LITERS.
--- NOTE | 2022-11-26 06:35 | NUR ---
MS RN NOTES LAYING ON BED,SLEEPING,AROUSABLE TO TOUCH,VERBAL STIMULI,WOUND VAC WITH SMALL AMOUNT OF DISCHARGES.FAIRLY RESTED AT NIGHT,NO DISTRESS.WILL ENDORSE TO DAY NURSE FOR SEAN.
--- NOTE | 2022-11-26 07:25 | NUR ---
MS RN OPENING NOTES: Received pt sleeping but easy to awake. On O2 via NC at 2lpm, saturating well. JOSE dressing with wound vac in place. Right chest permacath in place. IV access in right arm #20g, sl. Safety measures implemented: bed locked in lowest position, hob elevated, side rails up x 3, call light and tray table within easy reach. Will continue to monitor.
[2022-11-26 07:36] LABS: BASOPHILS % (AUTO) 0.1 % (0.0-2.0); EOSINOPHILS % (AUTO) 0.3 % (0.0-6.0); HEMATOCRIT 32 % (33-45); HEMOGLOBIN 10.2 g/dL (11.5-14.8); LYMPHOCYTES # (AUTO) 0.6 K/uL (0.8-4.8); LYMPHOCYTES % (AUTO) 3.2 % (20.0-44.0); MEAN CORPUSCULAR HGB CONC 32 g/dl (31.0-36.0); MEAN CORPUSCULAR VOLUME 89 fL (82-100); MONOCYTES # (AUTO) 1.1 K/uL (0.1-1.30); MONOCYTES % (AUTO) 6.3 % (2.0-12.0); NEUTROPHILS # (AUTO) 15.7 K/uL (1.8-8.9); NEUTROPHILS % (AUTO) 90.1 % (43.0-81.0); PLATELET COUNT (AUTO) 340 K/uL (150-450); RED BLOOD CELL COUNT(AUTO) 3.63 MIL/uL (4.0-5.2); WHITE BLOOD COUNT (AUTO) 17.4 K/uL (4.3-11.0)
[2022-11-26 08:05] LABS: CALCIUM, SERUM 8.7 mg/dL (8.5-10.1); CREATININE 3.6 mg/dL (0.6-1.3); POTASSIUM 3.9 mmol/L (3.5-5.1)
[2022-11-26] MEDS: PROSOURCE / PROSTAT (PYXIS) 30 ML UDC GT SCH ×2 (09:00→17:00)
[2022-11-26] MEDS: FLUTICASONE PROPIONATE 16 GM BOTTLE NS SCH (09:00)
[2022-11-26] MEDS: MINERAL OIL/PETROL OINT 396 GM JAR TP SCH (09:33)
[2022-11-26] MEDS: NEOMY SULF/BACITRAC ZN/POLY 15 GM TUBE TP SCH (09:33)
[2022-11-26] MEDS: CARVEDILOL 6.25 MG TABLET PO SCH (09:34)
[2022-11-26] MEDS: ARIPIPRAZOLE 5 MG TABLET PO SCH (09:34)
[2022-11-26] MEDS: predniSONE 20 MG TABLET PO SCH (09:34)
[2022-11-26] MEDS: hydrALAZINE HCL 50 MG TABLET PO SCH ×2 (09:35→17:51)
[2022-11-26] MEDS: NEPRO VAN 237 ML CAN PO SCH ×2 (09:40→17:52)
[2022-11-26] MEDS ORDERED: DOXY-326 PO (12:05)
[2022-11-26] MEDS ORDERED: AMOX-427 PO (12:05)
[2022-11-26 17:51] VITALS: BP 138/67
--- NOTE | 2022-11-26 19:10 | NUR ---
MS CAR FRAMER NOTES: Pt discharge to [facility] in a stable condition. A/O x 1-2, able to make needs known. On O2 via NC at 2lpm, saturating well. JOSE dressing in place, disconnected to wound vac. Right chest permacath in place, c/d/i. Removed IV access in right arm, dry and clean dressing applied on site. Report given to Conchita SCOTT, verbalized understanding. Discharge packet given to EMT. Charge Nurse and MD aware of discharge. Pt left the unit at 1901 via [place]ia accompanied by 2 WIND TURBINE ENGINEER.
== END 2022-11-26 19:00 | disposition home health service (06) | DRG 252 ==
LOC: ER 07:21 → TELE 11:11 → MED 11-16 20:28 → UNDODISIN 11-17 17:00
PROVIDERS: ADMIT Nurse Practitioner Acute Care; ATTEND Nurse Practitioner Acute Care
PROC: 05HM33Z Insertion of Infusion Device into Right Internal Jugular Vein, Percutaneous Approach (ICD-10-PCS; principal; 2022-11-16)
PROC: B543ZZA Ultrasonography of Right Jugular Veins, Guidance (ICD-10-PCS; 2022-11-16)
PROC: 5A1D70Z Performance of Urinary Filtration, Intermittent, Less than 6 Hours Per Day (ICD-10-PCS; 2022-11-16)
PROC: 30233N1 Transfusion of Nonautologous Red Blood Cells into Peripheral Vein, Percutaneous Approach (ICD-10-PCS; 2022-11-16)
PROC: 03LY0ZZ Occlusion of Upper Artery, Open Approach (ICD-10-PCS; 2022-11-18)
PROC: 03U Upper Arteries, Supplement (ICD-10-PCS; 2022-11-18)
PROC: 0JH63XZ Insertion of Tunneled Vascular Access Device into Chest Subcutaneous Tissue and Fascia, Percutaneous Approach (ICD-10-PCS; 2022-11-18)
PROC: 05HM33Z Insertion of Infusion Device into Right Internal Jugular Vein, Percutaneous Approach (ICD-10-PCS; 2022-11-18)
PROC: B513YZA Fluoroscopy of Right Jugular Veins using Other Contrast, Guidance (ICD-10-PCS; 2022-11-18)
DX: T82.838A Hemorrhage due to vascular prosthetic devices, implants and grafts, initial encounter (principal); A41.89 Other specified sepsis; I50.23 Acute on chronic systolic (congestive) heart failure; N18.6 End stage renal disease; I13.2 Hypertensive heart and chronic kidney disease with heart failure and with stage 5 chronic kidney disease, or end stage renal disease; E44.0 Moderate protein-calorie malnutrition; I82.612 Acute embolism and thrombosis of superficial veins of left upper extremity; I42.9 Cardiomyopathy, unspecified; Y92.129 Unspecified place in nursing home as the place of occurrence of the external cause; Z20.822 Contact with and (suspected) exposure to COVID-19; F32.A Depression, unspecified; Z88.6 Allergy status to analgesic agent; Z88.3 Allergy status to other anti-infective agents; Z88.2 Allergy status to sulfonamides; Z79.51 Long term (current) use of inhaled steroids; Z79.899 Other long term (current) drug therapy; K74.60 Unspecified cirrhosis of liver; D63.8 Anemia in other chronic diseases classified elsewhere; E88.09 Other disorders of plasma-protein metabolism, not elsewhere classified; M89.8X9 Other specified disorders of bone, unspecified site; Y71.2 Prosthetic and other implants, materials and accessory cardiovascular devices associated with adverse incidents; Z86.16 Personal history of COVID-19; Z99.2 Dependence on renal dialysis; I08.0 Rheumatic disorders of both mitral and aortic valves; D50.0 Iron deficiency anemia secondary to blood loss (chronic); I27.20 Pulmonary hypertension, unspecified; K72.10 Chronic hepatic failure without coma; T82.7XXA Infection and inflammatory reaction due to other cardiac and vascular devices, implants and grafts, initial encounter
CPT/HCPCS: 36415; 71045-TC; 80048-TC; 80061-TC; 80076-TC; 80202-TC; 83735-TC; 84100-TC; 85025-TC; 85027-TC; 85610-TC; 85730-TC; 86706; 86850-TC; 87040-TC; 87081-TC; 87340; 90935-TC; 93307-TC; 93930-TC; 93971-TC; A4223; A6402; A6403; C1750; C1769; C9803; G0378; J0360; J0885; J1170; J1644; J2270; J2405; J2704; J3370; J3490; J7030; J7040; J7050; J7060; P9016

== ENCOUNTER 2023-03-26 09:52 | Inpatient (IN) | payer MEDICARE, OTHER ==
[~2023-03-26] VITALS: Ht 157.5 cm; Wt 52.6 kg
[~2023-03-26 09:52] MED LIST changes: +ALBU18HF2 IH; -ALBU2.5V13 IH; +AMOX-427 PO; +ARIP10TA9 PO; +DIAZ10TA4 PO; +DIPH25CA51 PO; +DOXY-326 PO; +FLUT16SP16; +GUAI100S11 GT; -HYDR-4076 PO; +HYDR-4303 PO; -Hydrocodone/Apap 5/325MG PO; +MAG30ORA PO; +MINE105O TP; +NUT.237L67 PO; +ONDA4TAB5 PO; +SUCR500T PO
[2023-03-26] MEDS ORDERED: SEVE800T8 PO (10:43)
[2023-03-26] MEDS ORDERED: QUET25TA PO (10:43)
[2023-03-26] MEDS ORDERED: AMLO-212 PO (10:43)
[2023-03-26] MEDS ORDERED: DOCU-141 PO (10:43)
[2023-03-26 10:54] LABS: BASOPHILS % (AUTO) 0.8 % (0.0-2.0); EOSINOPHILS # (AUTO) 0.2 K/uL (0.0-0.7); EOSINOPHILS % (AUTO) 3.3 % (0.0-6.0); HEMATOCRIT 40 % (33-45); HEMOGLOBIN 12.8 g/dL (11.5-14.8); LYMPHOCYTES # (AUTO) 0.6 K/uL (0.8-4.8); LYMPHOCYTES % (AUTO) 10.4 % (20.0-44.0); MEAN CORPUSCULAR HEMOGLOBIN 28 PG (26.0-33.0); MEAN CORPUSCULAR HGB CONC 32 g/dl (31.0-36.0); MEAN CORPUSCULAR VOLUME 88 fL (82-100); MONOCYTES # (AUTO) 0.5 K/uL (0.1-1.30); MONOCYTES % (AUTO) 9.2 % (2.0-12.0); NEUTROPHILS # (AUTO) 4.5 K/uL (1.8-8.9); NEUTROPHILS % (AUTO) 76.3 % (43.0-81.0); PLATELET COUNT (AUTO) 119 K/uL (150-450); RED BLOOD CELL COUNT(AUTO) 4.54 MIL/uL (4.0-5.2); RED CELL DISTRIBUTION WIDTH 17.8 % (11.5-15.0); WHITE BLOOD COUNT (AUTO) 5.9 K/uL (4.3-11.0)
[2023-03-26] MEDS ORDERED: ACETAMINOPHEN 325 MG TABLET PO PRN (12:00)
[2023-03-26] MEDS ORDERED: ONDANSETRON HCL/PF 4 MG/2 ML VIAL IVP PRN (12:00)
[2023-03-26] MEDS ORDERED: MAGNESIUM HYDROXIDE 30 ML UDC PO PRN (12:00)
[2023-03-26] MEDS ORDERED: Z GUARD REMEDY 4 OZ OINT TP PRN (12:00)
[2023-03-26] MEDS ORDERED: MAG HYDROX/AL HYDROX/SIMETH 30 ML UDC PO PRN (12:00)
[2023-03-26 12:08] LABS: CALCIUM, SERUM 9.6 mg/dL (8.5-10.1); POTASSIUM 5.2 mmol/L (3.5-5.1)
[2023-03-26 12:15] LABS: CREATININE 8.4 mg/dL (0.6-1.3)
[2023-03-26 12:36] LABS: ALBUMIN 3.8 g/dL (3.4-5.0); BILIRUBIN,DIRECT 0.2 mg/dL (0.0-0.2); BILIRUBIN,TOTAL 0.5 mg/dL (0.2-1.0); TOTAL PROTEIN, SERUM 7.6 g/dL (6.4-8.2)
[2023-03-26] MEDS ORDERED: Medication Not On Formulary EA (Sucroferric Oxyhydroxide (Velphoro) 500 MG) PO SCH (13:00)
[2023-03-26 16:00] VITALS: BP 165/95; TEMP 98.2; O2SAT 98
[2023-03-26] MEDS ORDERED: QUETIAPINE FUMARATE 25 MG TABLET PO SCH (17:00)
[2023-03-26] MEDS ORDERED: hydrALAZINE HCL 50 MG TABLET PO SCH (17:00)
[2023-03-26] MEDS ORDERED: DOCUSATE SODIUM 100 MG CAPSULE PO SCH (17:00)
[2023-03-26] MEDS ORDERED: SEVELAMER CARBONATE 800 MG TABLET PO SCH (18:00)
[2023-03-26 20:59] VITALS: BP 154/91; TEMP 98.4; O2SAT 98
[2023-03-26] MEDS ORDERED: CARVEDILOL 12.5 MG TABLET PO SCH (21:00)
[2023-03-27] MEDS ORDERED: AMLODIPINE BESYLATE 5 MG TABLET PO SCH (09:00)
[2023-03-27] MEDS ORDERED: predniSONE 10 MG TABLET PO SCH (09:00)
[2023-03-27] MEDS ORDERED: predniSONE 20 MG TABLET PO SCH (09:00)
[2023-03-27] MEDS ORDERED: ARIPIPRAZOLE 5 MG TABLET PO SCH (09:00)
== END 2023-03-26 20:45 | disposition left against medical advice (07) | DRG 640 ==
LOC: ER 10:09 → TELE-TD 13:05 → MEDSG1 14:42
PROVIDERS: ADMIT Internal Medicine; ATTEND Internal Medicine
PROC: 5A1D70Z Performance of Urinary Filtration, Intermittent, Less than 6 Hours Per Day (ICD-10-PCS; principal; 2023-03-26)
DX: E87.70 Fluid overload, unspecified (principal); N18.6 End stage renal disease; I13.11 Hypertensive heart and chronic kidney disease without heart failure, with stage 5 chronic kidney disease, or end stage renal disease; J44.1 Chronic obstructive pulmonary disease with (acute) exacerbation; J98.11 Atelectasis; N13.30 Unspecified hydronephrosis; Z99.2 Dependence on renal dialysis; Z91.158 Patient's noncompliance with renal dialysis for other reason; Z88.6 Allergy status to analgesic agent; Z88.2 Allergy status to sulfonamides; E87.5 Hyperkalemia; G62.9 Polyneuropathy, unspecified; M89.8X9 Other specified disorders of bone, unspecified site; K74.60 Unspecified cirrhosis of liver; Z53.29 Procedure and treatment not carried out because of patient's decision for other reasons; Z79.899 Other long term (current) drug therapy; I27.20 Pulmonary hypertension, unspecified; Z72.0 Tobacco use
CPT/HCPCS: 36415; 71045-TC; 80048-TC; 80076-TC; 85025-TC; C9803; G0378; J7030

== ENCOUNTER 2023-05-14 09:19 | Emergency (ER) | payer MEDICARE, OTHER ==
[~2023-05-14] VITALS: Ht 160 cm; Wt 47.6 kg
[~2023-05-14 09:19] MED LIST changes: -ALBU18HF2 IH; +AMLO-212 PO; -AMOX-427 PO; -DIAZ10TA4 PO; -DIPH25CA51 PO; +DOCU-141 PO; -DOXY-326 PO; -FLUT16SP16; -GUAI100S11 GT; -HYDR-4303 PO; -MAG30ORA PO; -MINE105O TP; -NUT.237L67 PO; -ONDA4TAB5 PO; +QUET25TA PO; +SEVE800T8 PO
[2023-05-14] MEDS ORDERED: MORPHINE SULFATE INJ 2 MG/ML DISP.SYRIN IV ONE (10:00)
[2023-05-14 10:36] LABS: ALANINE AMINOTRANSFERASE 20 U/L (12-78); ALBUMIN 3.5 g/dL (3.4-5.0); ALKALINE PHOSPHATASE 84 U/L (46-116); ASPARTATE AMINOTRANSFERASE 15 U/L (15-37); BILIRUBIN,DIRECT 0.1 mg/dL (0.0-0.2); BILIRUBIN,TOTAL 0.4 mg/dL (0.2-1.0); CALCIUM, SERUM 9.4 mg/dL (8.5-10.1); CARBON DIOXIDE 34 mmol/L (21-32); CHLORIDE 101 mmol/L (98-107); CREATININE 5.5 mg/dL (0.6-1.3); GLUCOSE 103 mg/dL (74-106); LIPASE 38 U/L (16-77); POTASSIUM 4.2 mmol/L (3.5-5.1); SODIUM SERUM 144 mmol/L (136-145); TOTAL PROTEIN, SERUM 7.1 g/dL (6.4-8.2); UREA NITROGEN, BLOOD 42 mg/dL (7-18)
[2023-05-14 10:41] LABS: BASOPHILS % (AUTO) 0.4 % (0.0-2.0); EOSINOPHILS # (AUTO) 0.2 K/uL (0.0-0.7); HEMATOCRIT 37 % (33-45); HEMOGLOBIN 11.9 g/dL (11.5-14.8); LYMPHOCYTES # (AUTO) 0.3 K/uL (0.8-4.8); LYMPHOCYTES % (AUTO) 5.5 % (20.0-44.0); MEAN CORPUSCULAR HEMOGLOBIN 27 PG (26.0-33.0); MEAN CORPUSCULAR HGB CONC 32 g/dl (31.0-36.0); MEAN CORPUSCULAR VOLUME 85 fL (82-100); MONOCYTES # (AUTO) 0.5 K/uL (0.1-1.30); MONOCYTES % (AUTO) 8.3 % (2.0-12.0); NEUTROPHILS # (AUTO) 4.8 K/uL (1.8-8.9); NEUTROPHILS % (AUTO) 82.8 % (43.0-81.0); PLATELET COUNT (AUTO) 108 K/uL (150-450); RED CELL DISTRIBUTION WIDTH 19.6 % (11.5-15.0); WHITE BLOOD COUNT (AUTO) 5.8 K/uL (4.3-11.0)
[2023-05-14] MEDS ORDERED: DIPH25TA23 PO (11:20)
[2023-05-14] MEDS ORDERED: CARV25TA PO (11:20)
[2023-05-14] MEDS ORDERED: MORPHINE SULFATE INJ 2 MG/ML DISP.SYRIN ONE (11:47)
[2023-05-14 12:34] VITALS: BP 126/71; TEMP 98.1; O2SAT 100
== END 2023-05-14 12:34 | disposition home or self-care (01) ==
LOC: ER 09:48
DX: R10.84 Generalized abdominal pain (principal); I12.0 Hypertensive chronic kidney disease with stage 5 chronic kidney disease or end stage renal disease; N18.6 End stage renal disease; Z79.899 Other long term (current) drug therapy; Z88.2 Allergy status to sulfonamides; Z88.1 Allergy status to other antibiotic agents
CPT/HCPCS: 36415; 71045-TC; 80048-TC; 80076-TC; 83690-TC; 84484-TC; 85025-TC; J2270

== ENCOUNTER 2023-06-16 09:05 | Emergency (ER) | payer MEDICARE, OTHER ==
[~2023-06-16] VITALS: Ht 160 cm; Wt 48.1 kg
[~2023-06-16 09:05] MED LIST changes: +CARV25TA PO; -CARV6.252 PO; +DIPH25TA23 PO
[2023-06-16 10:26] LABS: ALANINE AMINOTRANSFERASE 61 U/L (12-78); ALKALINE PHOSPHATASE 105 U/L (46-116); ASPARTATE AMINOTRANSFERASE 88 U/L (15-37); BILIRUBIN,DIRECT 0.3 mg/dL (0.0-0.2); BILIRUBIN,TOTAL 0.7 mg/dL (0.2-1.0); CALCIUM, SERUM 9.5 mg/dL (8.5-10.1); CARBON DIOXIDE 26 mmol/L (21-32); CHLORIDE 92 mmol/L (98-107); GLUCOSE 88 mg/dL (74-106); SODIUM SERUM 130 mmol/L (136-145)
[2023-06-16 10:32] LABS: CREATININE 11.9 mg/dL (0.6-1.3); POTASSIUM 6.9 mmol/L (3.5-5.1); UREA NITROGEN, BLOOD 93 mg/dL (7-18)
[2023-06-16] MEDS ORDERED: DEXTROSE 50%-WATER 50 ML DISP.SYRIN ONE (10:49)
[2023-06-16] MEDS ORDERED: SODIUM BICARBONATE SYR 50 MEQ/50 ML DISP.SYRIN ONE (10:49)
[2023-06-16] MEDS ORDERED: INSULIN REGULAR, HUMAN 100 UNIT/ML 10 ML VIAL ONE (10:50)
[2023-06-16] MEDS ORDERED: ALBUTEROL FS 2.5 MG/3 ML VIAL.NEB ONE (10:54)
[2023-06-16] MEDS ORDERED: ALBUTEROL FS 2.5 MG/3 ML VIAL.NEB NEB ONE (11:00)
[2023-06-16] MEDS ORDERED: ONDANSETRON HCL/PF 4 MG/2 ML VIAL IVP PRN (11:00)
[2023-06-16] MEDS ORDERED: DEXTROSE 50%-WATER 50 ML DISP.SYRIN IV ONE ×2 (11:00)
[2023-06-16] MEDS ORDERED: SODIUM BICARBONATE SYR 50 MEQ/50 ML DISP.SYRIN IV ONE (11:00)
[2023-06-16] MEDS ORDERED: INSULIN REGULAR, HUMAN 100 UNIT/ML 10 ML VIAL IV ONE (11:00)
[2023-06-16] MEDS ORDERED: ACETAMINOPHEN 325 MG TABLET PO PRN (11:00)
[2023-06-16 11:02] VITALS: O2SAT 100
[2023-06-16] MEDS ORDERED: DIAZ10TA4 PO (11:08)
[2023-06-16] MEDS ORDERED: HYDR-4209 PO (11:08)
[2023-06-16 11:09] LABS: BASOPHILS % (AUTO) 0.3 % (0.0-2.0); EOSINOPHILS % (AUTO) 0.1 % (0.0-6.0); HEMATOCRIT 36 % (33-45); HEMOGLOBIN 11.5 g/dL (11.5-14.8); LYMPHOCYTES # (AUTO) 0.3 K/uL (0.8-4.8); LYMPHOCYTES % (AUTO) 3.4 % (20.0-44.0); MEAN CORPUSCULAR HEMOGLOBIN 28 PG (26.0-33.0); MEAN CORPUSCULAR HGB CONC 32 g/dl (31.0-36.0); MEAN CORPUSCULAR VOLUME 85 fL (82-100); MONOCYTES # (AUTO) 0.9 K/uL (0.1-1.30); NEUTROPHILS # (AUTO) 8.8 K/uL (1.8-8.9); NEUTROPHILS % (AUTO) 87.2 % (43.0-81.0); PLATELET COUNT (AUTO) 109 K/uL (150-450); RED BLOOD CELL COUNT(AUTO) 4.18 MIL/uL (4.0-5.2); RED CELL DISTRIBUTION WIDTH 19.2 % (11.5-15.0); WHITE BLOOD COUNT (AUTO) 10.1 K/uL (4.3-11.0)
[2023-06-16 11:15] VITALS: O2SAT 100
[2023-06-16 11:39] LABS: NT-PRO BNP > 25000 pg/mL (0-125)
[2023-06-16 14:24] VITALS: BP 138/72; TEMP 98.1; O2SAT 98
[2023-06-16] MEDS ORDERED: HEPARIN SODIUM, PORCINE 5000 UNITS/1 ML VIAL SQ SCH (21:00)
== END 2023-06-16 14:38 | disposition home or self-care (01) ==
LOC: ER 09:21
DX: I12.0 Hypertensive chronic kidney disease with stage 5 chronic kidney disease or end stage renal disease (principal); N18.6 End stage renal disease; Z99.2 Dependence on renal dialysis; Z88.6 Allergy status to analgesic agent; Z88.2 Allergy status to sulfonamides; Z88.8 Allergy status to other drugs, medicaments and biological substances
CPT/HCPCS: 99285; 96374; 71045; 96375; 93005; 85025; 80048; 80076; 36415; 84484; 83880; 82962; J1815; J3490

== ENCOUNTER 2023-06-28 14:22 | Inpatient (IN) | payer MEDICARE, OTHER ==
[~2023-06-28] VITALS: Ht 162.6 cm; Wt 49.0 kg
[~2023-06-28 14:22] MED LIST changes: +DIAZ10TA4 PO; +HYDR-4209 PO
[2023-06-28 15:53] LABS: BASOPHILS # (AUTO) 0.1 K/uL (0.0-0.2); BASOPHILS % (AUTO) 1.4 % (0.0-2.0); EOSINOPHILS # (AUTO) 0.1 K/uL (0.0-0.7); EOSINOPHILS % (AUTO) 1.1 % (0.0-6.0); HEMATOCRIT 36 % (33-45); HEMOGLOBIN 11.6 g/dL (11.5-14.8); LYMPHOCYTES # (AUTO) 0.6 K/uL (0.8-4.8); LYMPHOCYTES % (AUTO) 6.1 % (20.0-44.0); MEAN CORPUSCULAR HEMOGLOBIN 27 PG (26.0-33.0); MEAN CORPUSCULAR HGB CONC 32 g/dl (31.0-36.0); MEAN CORPUSCULAR VOLUME 85 fL (82-100); MONOCYTES # (AUTO) 0.9 K/uL (0.1-1.30); MONOCYTES % (AUTO) 8.7 % (2.0-12.0); NEUTROPHILS # (AUTO) 8.3 K/uL (1.8-8.9); NEUTROPHILS % (AUTO) 82.7 % (43.0-81.0); PLATELET COUNT (AUTO) 251 K/uL (150-450); RED BLOOD CELL COUNT(AUTO) 4.28 MIL/uL (4.0-5.2); RED CELL DISTRIBUTION WIDTH 18.6 % (11.5-15.0); WHITE BLOOD COUNT (AUTO) 10.1 K/uL (4.3-11.0)
[2023-06-28 16:12] LABS: INR 1.23 (0.91-1.10); PARTIAL THROMBOPLASTIN TIME 41.9 SEC (24.3-34.3); PROTHROMBIN TIME 12.9 SECS (9.2-11.1)
[2023-06-28 16:21] LABS: CALCIUM, SERUM 9.4 mg/dL (8.5-10.1); CARBON DIOXIDE 20 mmol/L (21-32); CHLORIDE 91 mmol/L (98-107); GLUCOSE 76 mg/dL (74-106); POTASSIUM 5.8 mmol/L (3.5-5.1); SODIUM SERUM 129 mmol/L (136-145)
[2023-06-28 16:34] LABS: ALANINE AMINOTRANSFERASE 25 U/L (12-78); ALKALINE PHOSPHATASE 118 U/L (46-116); ASPARTATE AMINOTRANSFERASE 12 U/L (15-37); BILIRUBIN,DIRECT 0.3 mg/dL (0.0-0.2); BILIRUBIN,TOTAL 0.8 mg/dL (0.2-1.0); TOTAL PROTEIN, SERUM 8.4 g/dL (6.4-8.2)
[2023-06-28 16:35] LABS: CREATININE 12.9 mg/dL (0.6-1.3); UREA NITROGEN, BLOOD 87 mg/dL (7-18)
[2023-06-28 16:41] LABS: NT-PRO BNP > 35000 pg/mL (0-125)
[2023-06-28] MEDS ORDERED: HYDROCODONE/APAP 5/325MG TABLET PO PRN (19:00)
[2023-06-28] MEDS ORDERED: DIAZEPAM 10 MG TABLET PO PRN (19:00)
[2023-06-28] MEDS ORDERED: DIAZEPAM 5 MG TABLET PO PRN (21:30)
[2023-06-28] MEDS ORDERED: CLOPIDOGREL BISULFATE 75 MG TABLET PO ONE (21:30)
[2023-06-28] MEDS ORDERED: CLOPIDOGREL BISULFATE 75 MG TABLET ONE (21:42)
[2023-06-28 22:15] VITALS: BP 160/71; TEMP 99.5; O2SAT 93
[2023-06-29] MEDS ORDERED: ACETAMINOPHEN 325 MG TABLET PO PRN
[2023-06-29] MEDS ORDERED: SODIUM POLYSTYRENE SULFONATE 15 G/60 ML BOTTLE PO ONE
[2023-06-29] MEDS ORDERED: Z GUARD REMEDY 4 OZ OINT TP PRN
[2023-06-29] MEDS ORDERED: ONDANSETRON HCL/PF 4 MG/2 ML VIAL IVP PRN
[2023-06-29 07:23] LABS: BASOPHILS # (AUTO) 0.1 K/uL (0.0-0.2); BASOPHILS % (AUTO) 0.5 % (0.0-2.0); EOSINOPHILS # (AUTO) 0.1 K/uL (0.0-0.7); EOSINOPHILS % (AUTO) 0.9 % (0.0-6.0); HEMATOCRIT 35 % (33-45); HEMOGLOBIN 11.1 g/dL (11.5-14.8); LYMPHOCYTES # (AUTO) 0.8 K/uL (0.8-4.8); LYMPHOCYTES % (AUTO) 7.5 % (20.0-44.0); MEAN CORPUSCULAR HEMOGLOBIN 27 PG (26.0-33.0); MEAN CORPUSCULAR HGB CONC 32 g/dl (31.0-36.0); MEAN CORPUSCULAR VOLUME 84 fL (82-100); MONOCYTES # (AUTO) 1.1 K/uL (0.1-1.30); MONOCYTES % (AUTO) 9.7 % (2.0-12.0); NEUTROPHILS % (AUTO) 81.4 % (43.0-81.0); PLATELET COUNT (AUTO) 258 K/uL (150-450); RED BLOOD CELL COUNT(AUTO) 4.09 MIL/uL (4.0-5.2); RED CELL DISTRIBUTION WIDTH 18.5 % (11.5-15.0)
[2023-06-29 07:39] LABS: CALCIUM, SERUM 9.2 mg/dL (8.5-10.1); MAGNESIUM 3.3 mg/dL (1.8-2.4); PHOSPHORUS 6.1 mg/dL (2.5-4.9); POTASSIUM 5.5 mmol/L (3.5-5.1)
[2023-06-29 07:47] LABS: CREATININE 14.7 mg/dL (0.6-1.3)
[2023-06-29 08:00] VITALS: BP 132/64; TEMP 100.2; O2SAT 98
[2023-06-29] MEDS: hydrALAZINE HCL 50 MG TABLET PO SCH ×2 (08:59→17:00)
[2023-06-29] MEDS: QUETIAPINE FUMARATE 25 MG TABLET PO SCH ×2 (08:59→17:00)
[2023-06-29] MEDS: SEVELAMER CARBONATE 800 MG TABLET PO SCH ×3 (08:59→17:41)
[2023-06-29] MEDS: CARVEDILOL 6.25 MG TABLET PO SCH ×2 (09:00→17:00)
[2023-06-29] MEDS: ARIPIPRAZOLE 5 MG TABLET PO SCH (09:00)
[2023-06-29] MEDS: predniSONE 20 MG TABLET PO SCH (09:00)
[2023-06-29] MEDS: DOCUSATE SODIUM 100 MG CAPSULE PO SCH (09:01)
[2023-06-29] MEDS: AMLODIPINE BESYLATE 5 MG TABLET PO SCH (09:01)
[2023-06-29] MEDS: HEPARIN SODIUM, PORCINE 5000 UNITS/1 ML VIAL SQ SCH (09:05)
[2023-06-29] MEDS ORDERED: CEPH500C2 PO (11:33)
[2023-06-29 16:00] VITALS: BP 133/69; TEMP 98.6; O2SAT 94
[2023-06-29 20:00] VITALS: BP 144/72; TEMP 99.1; O2SAT 95
[2023-06-30] MEDS: HEPARIN SODIUM, PORCINE 5000 UNITS/1 ML VIAL SQ SCH ×2 (00:06→08:55)
[2023-06-30 05:44] LABS: BASOPHILS % (AUTO) 0.4 % (0.0-2.0); EOSINOPHILS # (AUTO) 0.1 K/uL (0.0-0.7); EOSINOPHILS % (AUTO) 0.9 % (0.0-6.0); HEMATOCRIT 35 % (33-45); HEMOGLOBIN 11.2 g/dL (11.5-14.8); LYMPHOCYTES # (AUTO) 0.8 K/uL (0.8-4.8); MEAN CORPUSCULAR HEMOGLOBIN 27 PG (26.0-33.0); MEAN CORPUSCULAR HGB CONC 32 g/dl (31.0-36.0); MEAN CORPUSCULAR VOLUME 86 fL (82-100); MONOCYTES % (AUTO) 9.1 % (2.0-12.0); NEUTROPHILS % (AUTO) 82.6 % (43.0-81.0); PLATELET COUNT (AUTO) 225 K/uL (150-450); RED BLOOD CELL COUNT(AUTO) 4.14 MIL/uL (4.0-5.2); RED CELL DISTRIBUTION WIDTH 17.9 % (11.5-15.0)
[2023-06-30 06:14] LABS: ALBUMIN 2.4 g/dL (3.4-5.0); BILIRUBIN,TOTAL 0.7 mg/dL (0.2-1.0); CALCIUM, SERUM 9.2 mg/dL (8.5-10.1); CREATININE 7.3 mg/dL (0.6-1.3); MAGNESIUM 2.5 mg/dL (1.8-2.4); PHOSPHORUS 4.5 mg/dL (2.5-4.9); POTASSIUM 3.8 mmol/L (3.5-5.1); TOTAL PROTEIN, SERUM 7.4 g/dL (6.4-8.2)
[2023-06-30 08:00] VITALS: BP 166/77; TEMP 98.2; O2SAT 97
[2023-06-30] MEDS: SEVELAMER CARBONATE 800 MG TABLET PO SCH ×3 (08:00→12:19)
[2023-06-30] MEDS: hydrALAZINE HCL 50 MG TABLET PO SCH (08:49)
[2023-06-30] MEDS: AMLODIPINE BESYLATE 5 MG TABLET PO SCH (08:49)
[2023-06-30] MEDS: CARVEDILOL 6.25 MG TABLET PO SCH (08:49)
[2023-06-30] MEDS: predniSONE 20 MG TABLET PO SCH (08:55)
[2023-06-30] MEDS: ARIPIPRAZOLE 5 MG TABLET PO SCH (08:55)
[2023-06-30] MEDS: QUETIAPINE FUMARATE 25 MG TABLET PO SCH (08:55)
[2023-06-30] MEDS: DOCUSATE SODIUM 100 MG CAPSULE PO SCH (08:55)
[2023-06-30] MEDS ORDERED: NEPRO VAN 237 ML CAN PO PRN (12:00)
[2023-06-30 15:38] VITALS: BP 92/51; TEMP 98.6; O2SAT 98
[2023-06-30 16:22] VITALS: BP 98/55
== END 2023-06-30 17:27 | DRG 280 ==
LOC: ER 14:42 → MED 21:00
PROVIDERS: ADMIT Nurse Practitioner Acute Care
PROC: 5A1D70Z Performance of Urinary Filtration, Intermittent, Less than 6 Hours Per Day (ICD-10-PCS; principal; 2023-06-29)
DX: I13.2 Hypertensive heart and chronic kidney disease with heart failure and with stage 5 chronic kidney disease, or end stage renal disease (principal); G93.41 Metabolic encephalopathy; I21.4 Non-ST elevation (NSTEMI) myocardial infarction; I50.33 Acute on chronic diastolic (congestive) heart failure; N18.6 End stage renal disease; E87.20 Acidosis, unspecified; E87.1 Hypo-osmolality and hyponatremia; I80.8 Phlebitis and thrombophlebitis of other sites; E87.5 Hyperkalemia; Z88.6 Allergy status to analgesic agent; Z88.2 Allergy status to sulfonamides; Z88.8 Allergy status to other drugs, medicaments and biological substances; Z79.899 Other long term (current) drug therapy; I25.10 Atherosclerotic heart disease of native coronary artery without angina pectoris; F03.90 Unspecified dementia, unspecified severity, without behavioral disturbance, psychotic disturbance, mood disturbance, and anxiety; Z88.3 Allergy status to other anti-infective agents; Z99.2 Dependence on renal dialysis; D64.9 Anemia, unspecified; E88.9 Metabolic disorder, unspecified; E83.41 Hypermagnesemia
CPT/HCPCS: 36415; 71045-TC; 80048-TC; 80053-TC; 80061-TC; 80076-TC; 83735-TC; 83880; 84100-TC; 84484-TC; 85025-TC; 85730-TC; 87081-TC; 90935-TC; 93971-TC; G0378; J1644; J7030

== ENCOUNTER 2023-07-13 12:03 | Inpatient (IN) | payer MEDICARE, OTHER ==
[~2023-07-13] VITALS: Ht 162.6 cm; Wt 42.6 kg
[~2023-07-13 12:03] MED LIST changes: +CEPH500C2 PO; -PRED10TA PO
[2023-07-13 13:14] LABS: BASOPHILS % (AUTO) 0.6 % (0.0-2.0); EOSINOPHILS # (AUTO) 0.3 K/uL (0.0-0.7); EOSINOPHILS % (AUTO) 3.7 % (0.0-6.0); HEMATOCRIT 32 % (33-45); HEMOGLOBIN 9.9 g/dL (11.5-14.8); LYMPHOCYTES # (AUTO) 0.5 K/uL (0.8-4.8); LYMPHOCYTES % (AUTO) 6.7 % (20.0-44.0); MEAN CORPUSCULAR HEMOGLOBIN 26 PG (26.0-33.0); MEAN CORPUSCULAR HGB CONC 31 g/dl (31.0-36.0); MEAN CORPUSCULAR VOLUME 84 fL (82-100); MONOCYTES # (AUTO) 0.8 K/uL (0.1-1.30); MONOCYTES % (AUTO) 10.1 % (2.0-12.0); NEUTROPHILS # (AUTO) 5.9 K/uL (1.8-8.9); NEUTROPHILS % (AUTO) 78.9 % (43.0-81.0); PLATELET COUNT (AUTO) 255 K/uL (150-450); RED BLOOD CELL COUNT(AUTO) 3.77 MIL/uL (4.0-5.2); RED CELL DISTRIBUTION WIDTH 17.6 % (11.5-15.0); WHITE BLOOD COUNT (AUTO) 7.5 K/uL (4.3-11.0)
[2023-07-13 13:20] LABS: CALCIUM, SERUM 9.4 mg/dL (8.5-10.1); CARBON DIOXIDE 29 mmol/L (21-32); CHLORIDE 95 mmol/L (98-107); CREATININE 6.4 mg/dL (0.6-1.3); GLUCOSE 121 mg/dL (74-106); POTASSIUM 3.7 mmol/L (3.5-5.1); SODIUM SERUM 135 mmol/L (136-145); UREA NITROGEN, BLOOD 42 mg/dL (7-18)
[2023-07-13 13:22] LABS: INR 1.16 (0.91-1.10); PROTHROMBIN TIME 12.2 SECS (9.2-11.1)
[2023-07-13] MEDS ORDERED: PRED10TA PO (13:23)
[2023-07-13 13:30] LABS: LACTIC ACID 1.9 mmol/L (0.4-2.0)
[2023-07-13 13:36] LABS: ALANINE AMINOTRANSFERASE 17 U/L (12-78); ALBUMIN 2.4 g/dL (3.4-5.0); ALKALINE PHOSPHATASE 100 U/L (46-116); ASPARTATE AMINOTRANSFERASE 32 U/L (15-37); BILIRUBIN,DIRECT 0.2 mg/dL (0.0-0.2); BILIRUBIN,TOTAL 0.4 mg/dL (0.2-1.0); TOTAL PROTEIN, SERUM 7.7 g/dL (6.4-8.2)
[2023-07-13] MEDS ORDERED: Z GUARD REMEDY 4 OZ OINT TP PRN (14:30)
[2023-07-13] MEDS ORDERED: TEMAZEPAM 15 MG CAPSULE PO PRN (14:30)
[2023-07-13] MEDS ORDERED: MAGNESIUM HYDROXIDE 30 ML UDC PO PRN (14:30)
[2023-07-13] MEDS ORDERED: ONDANSETRON HCL/PF 4 MG/2 ML VIAL IVP PRN (14:30)
[2023-07-13] MEDS ORDERED: DIAZEPAM 10 MG TABLET PO PRN (14:30)
[2023-07-13] MEDS ORDERED: HYDROCODONE/APAP 5/325MG TABLET PO PRN ×2 (14:30)
[2023-07-13] MEDS ORDERED: ACETAMINOPHEN 325 MG TABLET PO PRN (14:30)
[2023-07-13] MEDS ORDERED: MAG HYDROX/AL HYDROX/SIMETH 30 ML UDC PO PRN (14:30)
[2023-07-13] MEDS ORDERED: VELPHORO PO SCH (14:30)
[2023-07-13] MEDS ORDERED: DIPHENHYDRAMINE HCL 12.5 MG/5 ML UDC PO PRN (14:30)
[2023-07-13 14:31] LABS: NT-PRO BNP > 35000 pg/mL (0-125)
[2023-07-13] MEDS: QUETIAPINE FUMARATE 25 MG TABLET PO SCH (17:14)
[2023-07-13] MEDS: CARVEDILOL 12.5 MG TABLET PO SCH (17:15)
[2023-07-13] MEDS: hydrALAZINE HCL 50 MG TABLET PO SCH (17:15)
[2023-07-13] MEDS: SEVELAMER CARBONATE 800 MG POWD.PACK PO SCH (17:31)
[2023-07-13 20:00] VITALS: BP 96/48; TEMP 97.8; O2SAT 100
[2023-07-14] VITALS: BP 98/58; TEMP 97.8; O2SAT 99
[2023-07-14 04:00] VITALS: BP 117/59; TEMP 97.7; O2SAT 98
[2023-07-14 07:30] VITALS: BP 121/64; TEMP 98.4; O2SAT 95
[2023-07-14 08:09] LABS: BASOPHILS % (AUTO) 0.8 % (0.0-2.0); EOSINOPHILS # (AUTO) 0.3 K/uL (0.0-0.7); EOSINOPHILS % (AUTO) 4.9 % (0.0-6.0); HEMATOCRIT 33 % (33-45); HEMOGLOBIN 10.4 g/dL (11.5-14.8); LYMPHOCYTES # (AUTO) 0.6 K/uL (0.8-4.8); LYMPHOCYTES % (AUTO) 9.7 % (20.0-44.0); MEAN CORPUSCULAR HEMOGLOBIN 26 PG (26.0-33.0); MEAN CORPUSCULAR HGB CONC 31 g/dl (31.0-36.0); MEAN CORPUSCULAR VOLUME 84 fL (82-100); MONOCYTES # (AUTO) 0.6 K/uL (0.1-1.30); MONOCYTES % (AUTO) 9.8 % (2.0-12.0); NEUTROPHILS # (AUTO) 4.4 K/uL (1.8-8.9); NEUTROPHILS % (AUTO) 74.8 % (43.0-81.0); PLATELET COUNT (AUTO) 242 K/uL (150-450); RED BLOOD CELL COUNT(AUTO) 3.96 MIL/uL (4.0-5.2); RED CELL DISTRIBUTION WIDTH 16.9 % (11.5-15.0); WHITE BLOOD COUNT (AUTO) 5.9 K/uL (4.3-11.0)
[2023-07-14 08:14] LABS: CALCIUM, SERUM 9.5 mg/dL (8.5-10.1); MAGNESIUM 2.8 mg/dL (1.8-2.4); PHOSPHORUS 3.8 mg/dL (2.5-4.9); POTASSIUM 4.1 mmol/L (3.5-5.1)
[2023-07-14 08:23] LABS: CREATININE 7.6 mg/dL (0.6-1.3)
[2023-07-14] MEDS: PANTOPRAZOLE 40 MG TABLET.DR PO SCH (08:29)
[2023-07-14] MEDS: hydrALAZINE HCL 50 MG TABLET PO SCH ×2 (09:00→17:00)
[2023-07-14] MEDS ORDERED: predniSONE 10 MG TABLET PO SCH (09:00)
[2023-07-14] MEDS: SEVELAMER CARBONATE 800 MG POWD.PACK PO SCH (09:00)
[2023-07-14] MEDS: ARIPIPRAZOLE 5 MG TABLET PO SCH (09:00)
[2023-07-14] MEDS: QUETIAPINE FUMARATE 25 MG TABLET PO SCH ×2 (09:00→17:09)
[2023-07-14] MEDS: DOCUSATE SODIUM 100 MG CAPSULE PO SCH (09:01)
[2023-07-14] MEDS: CARVEDILOL 12.5 MG TABLET PO SCH ×2 (09:01→17:10)
[2023-07-14] MEDS: AMLODIPINE BESYLATE 5 MG TABLET PO SCH (09:04)
[2023-07-14] MEDS ORDERED: NEPRO VAN 237 ML CAN PO PRN (10:30)
[2023-07-14] MEDS: predniSONE 20 MG TABLET PO SCH (11:11)
[2023-07-14] MEDS: SEVELAMER CARBONATE 800 MG TABLET PO SCH ×2 (12:21→17:09)
[2023-07-14] MEDS: MEGESTROL ACETATE 40 MG TABLET PO SCH (17:09)
[2023-07-14 20:00] VITALS: BP 115/85; TEMP 97.9; O2SAT 100
[2023-07-15] VITALS (7 sets, daily range): BP systolic 91–132; BP diastolic 44–74; TEMP 97.5–97.8; O2SAT 95–98
[2023-07-15] MEDS: PANTOPRAZOLE 40 MG TABLET.DR PO SCH (07:58)
[2023-07-15] MEDS: SEVELAMER CARBONATE 800 MG TABLET PO SCH ×3 (07:58→17:56)
[2023-07-15] MEDS: CARVEDILOL 12.5 MG TABLET PO SCH ×2 (08:56→17:00)
[2023-07-15] MEDS: predniSONE 20 MG TABLET PO SCH (08:56)
[2023-07-15] MEDS: DOCUSATE SODIUM 100 MG CAPSULE PO SCH (08:57)
[2023-07-15] MEDS: QUETIAPINE FUMARATE 25 MG TABLET PO SCH ×2 (08:57→17:00)
[2023-07-15] MEDS: MEGESTROL ACETATE 40 MG TABLET PO SCH ×2 (08:57→17:56)
[2023-07-15] MEDS: ARIPIPRAZOLE 5 MG TABLET PO SCH (08:57)
[2023-07-15] MEDS: AMLODIPINE BESYLATE 5 MG TABLET PO SCH (08:58)
[2023-07-15] MEDS: hydrALAZINE HCL 50 MG TABLET PO SCH ×2 (09:00→17:00)
[2023-07-15 09:07] LABS: BASOPHILS % (AUTO) 0.3 % (0.0-2.0); EOSINOPHILS # (AUTO) 0.1 K/uL (0.0-0.7); EOSINOPHILS % (AUTO) 0.9 % (0.0-6.0); HEMATOCRIT 33 % (33-45); HEMOGLOBIN 10.3 g/dL (11.5-14.8); LYMPHOCYTES # (AUTO) 0.5 K/uL (0.8-4.8); LYMPHOCYTES % (AUTO) 5.4 % (20.0-44.0); MEAN CORPUSCULAR HEMOGLOBIN 26 PG (26.0-33.0); MEAN CORPUSCULAR HGB CONC 31 g/dl (31.0-36.0); MEAN CORPUSCULAR VOLUME 84 fL (82-100); MONOCYTES # (AUTO) 0.6 K/uL (0.1-1.30); MONOCYTES % (AUTO) 7.6 % (2.0-12.0); NEUTROPHILS # (AUTO) 7.2 K/uL (1.8-8.9); NEUTROPHILS % (AUTO) 85.8 % (43.0-81.0); PLATELET COUNT (AUTO) 241 K/uL (150-450); RED BLOOD CELL COUNT(AUTO) 3.92 MIL/uL (4.0-5.2); RED CELL DISTRIBUTION WIDTH 17.3 % (11.5-15.0); WHITE BLOOD COUNT (AUTO) 8.4 K/uL (4.3-11.0)
[2023-07-15 09:58] LABS: ALBUMIN 2.1 g/dL (3.4-5.0); BILIRUBIN,TOTAL 0.4 mg/dL (0.2-1.0); CALCIUM, SERUM 9.4 mg/dL (8.5-10.1); CREATININE 4.5 mg/dL (0.6-1.3); POTASSIUM 3.9 mmol/L (3.5-5.1); TOTAL PROTEIN, SERUM 7.2 g/dL (6.4-8.2)
[2023-07-15] MEDS ORDERED: THERAHONEY GEL 1.5 OZ TUBE TP PRN (11:00)
[2023-07-15] MEDS ORDERED: MEGE40TA5 PO (12:23)
== END 2023-07-15 20:30 | DRG 640 ==
LOC: ER 12:10 → TELE 15:49
PROVIDERS: ADMIT Nurse Practitioner Acute Care; ATTEND Nurse Practitioner Acute Care
PROC: 5A1D70Z Performance of Urinary Filtration, Intermittent, Less than 6 Hours Per Day (ICD-10-PCS; principal; 2023-07-15)
DX: R62.7 Adult failure to thrive (principal); G93.41 Metabolic encephalopathy; I21.A1 Myocardial infarction type 2; N18.6 End stage renal disease; I13.2 Hypertensive heart and chronic kidney disease with heart failure and with stage 5 chronic kidney disease, or end stage renal disease; I50.32 Chronic diastolic (congestive) heart failure; E87.1 Hypo-osmolality and hyponatremia; F03.92 Unspecified dementia, unspecified severity, with psychotic disturbance; I42.9 Cardiomyopathy, unspecified; L89.322 Pressure ulcer of left buttock, stage 2; L89.312 Pressure ulcer of right buttock, stage 2; Z99.2 Dependence on renal dialysis; Z88.2 Allergy status to sulfonamides; Z86.72 Personal history of thrombophlebitis; Z88.6 Allergy status to analgesic agent; Z88.3 Allergy status to other anti-infective agents; N25.0 Renal osteodystrophy; D63.1 Anemia in chronic kidney disease; K74.60 Unspecified cirrhosis of liver; S70.02XA Contusion of left hip, initial encounter; X58.XXXA Exposure to other specified factors, initial encounter; Y92.099 Unspecified place in other non-institutional residence as the place of occurrence of the external cause; I25.10 Atherosclerotic heart disease of native coronary artery without angina pectoris; Z79.899 Other long term (current) drug therapy; Z86.718 Personal history of other venous thrombosis and embolism; Z91.199 Patient's noncompliance with other medical treatment and regimen due to unspecified reason
CPT/HCPCS: 36415; 71045-TC; 80048-TC; 80053-TC; 80076-TC; 83605-TC; 83735-TC; 83880; 84100-TC; 84484-TC; 85025-TC; 85730-TC; 87040-TC; 90935-TC; 93307-TC; G0378; J7030

== ENCOUNTER 2023-08-09 15:02 | Inpatient (IN) | payer MEDICARE, OTHER ==
[~2023-08-09] VITALS: Ht 157.5 cm; Wt 53.5 kg
[~2023-08-09 15:02] MED LIST changes: -CEPH500C2 PO; +MEGE40TA5 PO; +PRED10TA PO
[2023-08-09 16:49] LABS: BASOPHILS % (AUTO) 0.6 % (0.0-2.0); EOSINOPHILS # (AUTO) 0.1 K/uL (0.0-0.7); EOSINOPHILS % (AUTO) 0.9 % (0.0-6.0); HEMATOCRIT 26 % (33-45); HEMOGLOBIN 8.4 g/dL (11.5-14.8); LYMPHOCYTES # (AUTO) 0.3 K/uL (0.8-4.8); LYMPHOCYTES % (AUTO) 4.1 % (20.0-44.0); MEAN CORPUSCULAR HEMOGLOBIN 27 PG (26.0-33.0); MEAN CORPUSCULAR HGB CONC 32 g/dl (31.0-36.0); MEAN CORPUSCULAR VOLUME 85 fL (82-100); MONOCYTES # (AUTO) 0.2 K/uL (0.1-1.30); MONOCYTES % (AUTO) 2.5 % (2.0-12.0); NEUTROPHILS # (AUTO) 7.5 K/uL (1.8-8.9); NEUTROPHILS % (AUTO) 91.9 % (43.0-81.0); PLATELET COUNT (AUTO) 149 K/uL (150-450); RED BLOOD CELL COUNT(AUTO) 3.09 MIL/uL (4.0-5.2); RED CELL DISTRIBUTION WIDTH 19.9 % (11.5-15.0); WHITE BLOOD COUNT (AUTO) 8.2 K/uL (4.3-11.0)
[2023-08-09 17:00] LABS: CARBON DIOXIDE 30 mmol/L (21-32); CHLORIDE 95 mmol/L (98-107); GLUCOSE 99 mg/dL (74-106); SODIUM SERUM 133 mmol/L (136-145); UREA NITROGEN, BLOOD 78 mg/dL (7-18)
[2023-08-09 17:02] LABS: CREATININE 8.6 mg/dL (0.6-1.3); POTASSIUM 6.5 mmol/L (3.5-5.1)
[2023-08-09 17:05] LABS: INR 1.14 (0.91-1.10); PARTIAL THROMBOPLASTIN TIME 35.1 SEC (24.3-34.3)
[2023-08-09 17:11] LABS: LACTIC ACID 1.1 mmol/L (0.4-2.0)
[2023-08-09 17:22] LABS: NT-PRO BNP > 32000 pg/mL (0-125)
[2023-08-09] MEDS ORDERED: INSULIN REGULAR, HUMAN 100 UNIT/ML 10 ML VIAL IV ONE (17:30)
[2023-08-09] MEDS ORDERED: DEXTROSE 50%-WATER 50 ML DISP.SYRIN IV ONE (17:30)
[2023-08-09] MEDS ORDERED: SODIUM POLYSTYRENE SULFONATE 15 G/60 ML BOTTLE PO ONE (17:30)
[2023-08-09] MEDS ORDERED: CALCIUM CHLORIDE 1,000 MG/10 ML DISP.SYRIN IV ONE (17:30)
[2023-08-09] MEDS ORDERED: SODIUM POLYSTYRENE SULFONATE 15 G/60 ML BOTTLE ONE (17:35)
[2023-08-09] MEDS ORDERED: DEXTROSE 50%-WATER 50 ML DISP.SYRIN ONE (17:35)
[2023-08-09] MEDS ORDERED: CALCIUM CHLORIDE 1,000 MG/10 ML DISP.SYRIN ONE (17:35)
[2023-08-09] MEDS ORDERED: INSULIN REGULAR, HUMAN 100 UNIT/ML 10 ML VIAL ONE (17:36)
[2023-08-09 18:05] LABS: EOSINOPHILS % (MANUAL) 1 % (0-4); LYMPHOCYTES % (MANUAL) 6 % (16-48); MONOCYTES % (MANUAL) 2 % (0-11.0); NEUTROPHILS % (MANUAL) 91 (42-76)
[2023-08-09 18:06] LABS: ANISOCYTOSIS 1+; OVALOCYTES 1+; PLATELET ESTIMATE ADEQUATE; ROULEAUX 1+
[2023-08-09] MEDS ORDERED: MAGNESIUM HYDROXIDE 30 ML UDC PO PRN (20:00)
[2023-08-09] MEDS ORDERED: DIAZEPAM 10 MG TABLET PO PRN (20:00)
[2023-08-09] MEDS ORDERED: Z GUARD REMEDY 4 OZ OINT TP PRN (20:00)
[2023-08-09] MEDS ORDERED: ONDANSETRON HCL/PF 4 MG/2 ML VIAL IVP PRN (20:00)
[2023-08-09] MEDS ORDERED: MAG HYDROX/AL HYDROX/SIMETH 30 ML UDC PO PRN (20:00)
[2023-08-09] MEDS ORDERED: ZOLPIDEM TARTRATE 5 MG TABLET PO PRN (20:00)
[2023-08-09] MEDS ORDERED: HYDROCODONE/APAP 5/325MG TABLET PO PRN (20:00)
[2023-08-09] MEDS ORDERED: ENOXAPARIN SODIUM 40 MG/0.4 ML DISP.SYRIN SQ SCH (20:00)
[2023-08-09] MEDS ORDERED: ACETAMINOPHEN 325 MG TABLET PO PRN (20:00)
[2023-08-09 21:00] VITALS: BP 144/75; TEMP 97.7; O2SAT 98
[2023-08-09] MEDS ORDERED: diphenhydrAMINE HCL 25 MG CAPSULE PO PRN (21:00)
[2023-08-09] MEDS: HEPARIN SODIUM, PORCINE 5000 UNITS/1 ML VIAL SQ SCH ×2 (21:00→21:21)
[2023-08-09] MEDS: CARVEDILOL 12.5 MG TABLET PO SCH (21:20)
[2023-08-09] MEDS ORDERED: DIAZEPAM 5 MG TABLET PO PRN (21:30)
[2023-08-10] VITALS: BP 140/70; TEMP 98; O2SAT 97
[2023-08-10 01:54] LABS: BASOPHILS % (AUTO) 0.6 % (0.0-2.0); EOSINOPHILS # (AUTO) 0.2 K/uL (0.0-0.7); EOSINOPHILS % (AUTO) 2.9 % (0.0-6.0); HEMATOCRIT 23 % (33-45); HEMOGLOBIN 7.4 g/dL (11.5-14.8); LYMPHOCYTES # (AUTO) 0.4 K/uL (0.8-4.8); LYMPHOCYTES % (AUTO) 6.2 % (20.0-44.0); MEAN CORPUSCULAR HEMOGLOBIN 27 PG (26.0-33.0); MEAN CORPUSCULAR HGB CONC 32 g/dl (31.0-36.0); MEAN CORPUSCULAR VOLUME 85 fL (82-100); MONOCYTES # (AUTO) 0.3 K/uL (0.1-1.30); MONOCYTES % (AUTO) 5.4 % (2.0-12.0); NEUTROPHILS # (AUTO) 4.9 K/uL (1.8-8.9); NEUTROPHILS % (AUTO) 84.9 % (43.0-81.0); PLATELET COUNT (AUTO) 120 K/uL (150-450); RED BLOOD CELL COUNT(AUTO) 2.73 MIL/uL (4.0-5.2); RED CELL DISTRIBUTION WIDTH 19.4 % (11.5-15.0); WHITE BLOOD COUNT (AUTO) 5.8 K/uL (4.3-11.0)
[2023-08-10 02:04] LABS: CALCIUM, SERUM 9.1 mg/dL (8.5-10.1); MAGNESIUM 3.3 mg/dL (1.8-2.4); PHOSPHORUS 5.7 mg/dL (2.5-4.9); POTASSIUM 5.4 mmol/L (3.5-5.1)
[2023-08-10 02:06] LABS: CREATININE 8.9 mg/dL (0.6-1.3)
[2023-08-10 02:17] LABS: THYROID STIMULATING HORMONE 1.873 uIU/mL (0.358-3.74)
[2023-08-10 04:00] VITALS: BP 140/70; TEMP 98.6; O2SAT 95
[2023-08-10] MEDS ORDERED: Medication Not On Formulary EA (Sucroferric Oxyhydroxide (Velphoro) 500 MG) PO SCH (08:00)
[2023-08-10] MEDS: DOCUSATE SODIUM 100 MG CAPSULE PO SCH (08:22)
[2023-08-10] MEDS: SEVELAMER CARBONATE 800 MG TABLET PO SCH ×3 (08:22→17:09)
[2023-08-10] MEDS: PANTOPRAZOLE 40 MG TABLET.DR PO SCH (08:22)
[2023-08-10] MEDS: ARIPIPRAZOLE 5 MG TABLET PO SCH (08:22)
[2023-08-10] MEDS: hydrALAZINE HCL 50 MG TABLET PO SCH ×2 (08:23→16:44)
[2023-08-10] MEDS: HEPARIN SODIUM, PORCINE 5000 UNITS/1 ML VIAL SQ SCH ×2 (08:23→21:00)
[2023-08-10] MEDS: AMLODIPINE BESYLATE 5 MG TABLET PO SCH (08:23)
[2023-08-10] MEDS: predniSONE 20 MG TABLET PO SCH (08:23)
[2023-08-10] MEDS: CARVEDILOL 12.5 MG TABLET PO SCH ×2 (08:23→21:10)
[2023-08-10] MEDS: QUETIAPINE FUMARATE 25 MG TABLET PO SCH ×2 (08:23→16:44)
[2023-08-10 09:26] VITALS: BP 138/74; TEMP 97.9; O2SAT 95
[2023-08-10] MEDS: THERAHONEY GEL 1.5 OZ TUBE TP SCH (09:35)
[2023-08-10 12:55] VITALS: BP 140/70; TEMP 98; O2SAT 97
[2023-08-10 16:07] VITALS: BP 140/70; TEMP 98; O2SAT 97
[2023-08-10 20:00] VITALS: BP 147/70; TEMP 98.2; O2SAT 97
[2023-08-11] VITALS: BP 148/74; TEMP 97.5; O2SAT 100
[2023-08-11 04:00] VITALS: BP 145/72; TEMP 98.4; O2SAT 100
[2023-08-11 06:58] LABS: BASOPHILS % (AUTO) 0.5 % (0.0-2.0); EOSINOPHILS # (AUTO) 0.1 K/uL (0.0-0.7); HEMATOCRIT 23 % (33-45); HEMOGLOBIN 7.5 g/dL (11.5-14.8); LYMPHOCYTES # (AUTO) 0.4 K/uL (0.8-4.8); LYMPHOCYTES % (AUTO) 8.5 % (20.0-44.0); MEAN CORPUSCULAR HEMOGLOBIN 28 PG (26.0-33.0); MEAN CORPUSCULAR HGB CONC 33 g/dl (31.0-36.0); MEAN CORPUSCULAR VOLUME 85 fL (82-100); MONOCYTES # (AUTO) 0.4 K/uL (0.1-1.30); NEUTROPHILS # (AUTO) 3.8 K/uL (1.8-8.9); PLATELET COUNT (AUTO) 107 K/uL (150-450); RED BLOOD CELL COUNT(AUTO) 2.71 MIL/uL (4.0-5.2); RED CELL DISTRIBUTION WIDTH 19.2 % (11.5-15.0); WHITE BLOOD COUNT (AUTO) 4.8 K/uL (4.3-11.0)
[2023-08-11 07:25] LABS: ALBUMIN 2.7 g/dL (3.4-5.0); BILIRUBIN,TOTAL 0.3 mg/dL (0.2-1.0); CALCIUM, SERUM 8.5 mg/dL (8.5-10.1); CREATININE 5.2 mg/dL (0.6-1.3); MAGNESIUM 2.7 mg/dL (1.8-2.4); PHOSPHORUS 4.6 mg/dL (2.5-4.9); POTASSIUM 4.2 mmol/L (3.5-5.1); TOTAL PROTEIN, SERUM 6.7 g/dL (6.4-8.2)
[2023-08-11 08:00] VITALS: BP 151/78; TEMP 98.4; O2SAT 100
[2023-08-11] MEDS: ARIPIPRAZOLE 5 MG TABLET PO SCH (08:07)
[2023-08-11] MEDS: CARVEDILOL 12.5 MG TABLET PO SCH (08:08)
[2023-08-11] MEDS: predniSONE 20 MG TABLET PO SCH (08:08)
[2023-08-11] MEDS: PANTOPRAZOLE 40 MG TABLET.DR PO SCH (08:09)
[2023-08-11] MEDS: SEVELAMER CARBONATE 800 MG TABLET PO SCH ×2 (08:09→13:03)
[2023-08-11] MEDS: hydrALAZINE HCL 50 MG TABLET PO SCH (08:09)
[2023-08-11] MEDS: AMLODIPINE BESYLATE 5 MG TABLET PO SCH (08:09)
[2023-08-11] MEDS: DOCUSATE SODIUM 100 MG CAPSULE PO SCH (08:09)
[2023-08-11] MEDS: THERAHONEY GEL 1.5 OZ TUBE TP SCH (08:10)
[2023-08-11] MEDS: QUETIAPINE FUMARATE 25 MG TABLET PO SCH (08:30)
[2023-08-11] MEDS: HEPARIN SODIUM, PORCINE 5000 UNITS/1 ML VIAL SQ SCH (08:30)
[2023-08-11 12:00] VITALS: BP 131/78; TEMP 97.7; O2SAT 100
== END 2023-08-11 16:08 | DRG 640 ==
LOC: ER 15:09 → TELE1 19:31 → MEDSG1 08-11 11:07
PROVIDERS: ADMIT Student in an Organized Health Care Education/Training Program; ATTEND Internal Medicine
PROC: 5A1D70Z Performance of Urinary Filtration, Intermittent, Less than 6 Hours Per Day (ICD-10-PCS; principal; 2023-08-10)
DX: E87.5 Hyperkalemia (principal); N18.6 End stage renal disease; I13.2 Hypertensive heart and chronic kidney disease with heart failure and with stage 5 chronic kidney disease, or end stage renal disease; F03.92 Unspecified dementia, unspecified severity, with psychotic disturbance; G93.40 Encephalopathy, unspecified; E87.1 Hypo-osmolality and hyponatremia; I50.9 Heart failure, unspecified; Z91.199 Patient's noncompliance with other medical treatment and regimen due to unspecified reason; Z99.2 Dependence on renal dialysis; Z88.6 Allergy status to analgesic agent; Z88.3 Allergy status to other anti-infective agents; Z88.2 Allergy status to sulfonamides; Z88.1 Allergy status to other antibiotic agents; Z79.899 Other long term (current) drug therapy; Z91.158 Patient's noncompliance with renal dialysis for other reason; D64.9 Anemia, unspecified; I87.2 Venous insufficiency (chronic) (peripheral); I87.8 Other specified disorders of veins; L89.222 Pressure ulcer of left hip, stage 2; L89.212 Pressure ulcer of right hip, stage 2; M89.8X9 Other specified disorders of bone, unspecified site; Z86.72 Personal history of thrombophlebitis
CPT/HCPCS: 36415; 71045-TC; 80048-TC; 80053-TC; 82962-TC; 83605-TC; 83735-TC; 83880; 84100-TC; 84443-TC; 84484-TC; 85025-TC; 85730-TC; A6403; G0378; J1644; J1815; J3490; J7512

== ENCOUNTER 2023-10-05 13:21 | Emergency (ER) | payer MEDICARE, OTHER ==
[~2023-10-05] VITALS: Ht 157.5 cm; Wt 50.3 kg
[~2023-10-05 13:21] MED LIST changes: -ARIP10TA9 PO; -MEGE40TA5 PO; -QUET25TA PO
[2023-10-05] MEDS ORDERED: ONDANSETRON HCL/PF 4 MG/2 ML VIAL ONE (13:43)
[2023-10-05] MEDS: ONDANSETRON HCL/PF 4 MG/2 ML VIAL IVP ONE (14:00)
[2023-10-05 14:40] LABS: BASOPHILS % (AUTO) 0.6 % (0.0-2.0); EOSINOPHILS # (AUTO) 0.2 K/uL (0.0-0.7); HEMATOCRIT 36 % (33-45); HEMOGLOBIN 11.5 g/dL (11.5-14.8); LYMPHOCYTES # (AUTO) 0.5 K/uL (0.8-4.8); LYMPHOCYTES % (AUTO) 8.1 % (20.0-44.0); MEAN CORPUSCULAR HEMOGLOBIN 28 PG (26.0-33.0); MEAN CORPUSCULAR HGB CONC 32 g/dl (31.0-36.0); MEAN CORPUSCULAR VOLUME 88 fL (82-100); MONOCYTES # (AUTO) 0.4 K/uL (0.1-1.30); MONOCYTES % (AUTO) 6.8 % (2.0-12.0); NEUTROPHILS # (AUTO) 5.1 K/uL (1.8-8.9); NEUTROPHILS % (AUTO) 81.5 % (43.0-81.0); PLATELET COUNT (AUTO) 177 K/uL (150-450); RED BLOOD CELL COUNT(AUTO) 4.13 MIL/uL (4.0-5.2); RED CELL DISTRIBUTION WIDTH 19.2 % (11.5-15.0); WHITE BLOOD COUNT (AUTO) 6.3 K/uL (4.3-11.0)
[2023-10-05 15:09] LABS: ALANINE AMINOTRANSFERASE 13 U/L (12-78); ALBUMIN 3.1 g/dL (3.4-5.0); ALKALINE PHOSPHATASE 93 U/L (46-116); ASPARTATE AMINOTRANSFERASE 21 U/L (15-37); BILIRUBIN,DIRECT 0.1 mg/dL (0.0-0.2); BILIRUBIN,TOTAL 0.5 mg/dL (0.2-1.0); CALCIUM, SERUM 8.8 mg/dL (8.5-10.1); CARBON DIOXIDE 32 mmol/L (21-32); CHLORIDE 96 mmol/L (98-107); GLUCOSE 85 mg/dL (74-106); LIPASE 64 U/L (16-77); POTASSIUM 3.7 mmol/L (3.5-5.1); SODIUM SERUM 135 mmol/L (136-145); TOTAL PROTEIN, SERUM 7.1 g/dL (6.4-8.2); UREA NITROGEN, BLOOD 19 mg/dL (7-18)
[2023-10-05] MEDS ORDERED: HYDROCODONE/APAP 5/325MG TABLET ONE (15:41)
[2023-10-05] MEDS: HYDROCODONE/APAP 5/325MG TABLET PO ONE (15:45)
[2023-10-05] MEDS ORDERED: HYDR-4209 PO (16:15)
[2023-10-05 17:37] VITALS: BP 156/86; TEMP 98.1; O2SAT 98
== END 2023-10-05 17:37 | disposition home or self-care (01) ==
LOC: ER 13:25
DX: R51.9 Headache, unspecified (principal); I12.0 Hypertensive chronic kidney disease with stage 5 chronic kidney disease or end stage renal disease; N18.6 End stage renal disease; Z88.2 Allergy status to sulfonamides; Z88.8 Allergy status to other drugs, medicaments and biological substances; Z79.899 Other long term (current) drug therapy
CPT/HCPCS: 36415; 70450-TC; 71045-TC; 80048-TC; 80076-TC; 83690-TC; 84484-TC; 85025-TC; J2405

== ENCOUNTER 2023-10-12 15:37 | Inpatient (IN) | payer MEDICARE, OTHER ==
[~2023-10-12] VITALS: Ht 160 cm; Wt 45.4 kg
[2023-10-12 16:41] LABS: BASOPHILS # (AUTO) 0.1 K/uL (0.0-0.2); BASOPHILS % (AUTO) 0.9 % (0.0-2.0); EOSINOPHILS # (AUTO) 0.2 K/uL (0.0-0.7); EOSINOPHILS % (AUTO) 2.5 % (0.0-6.0); HEMATOCRIT 40 % (33-45); HEMOGLOBIN 12.7 g/dL (11.5-14.8); LYMPHOCYTES # (AUTO) 0.5 K/uL (0.8-4.8); LYMPHOCYTES % (AUTO) 6.4 % (20.0-44.0); MEAN CORPUSCULAR HEMOGLOBIN 27 PG (26.0-33.0); MEAN CORPUSCULAR HGB CONC 32 g/dl (31.0-36.0); MEAN CORPUSCULAR VOLUME 86 fL (82-100); MONOCYTES # (AUTO) 0.4 K/uL (0.1-1.30); MONOCYTES % (AUTO) 5.4 % (2.0-12.0); NEUTROPHILS # (AUTO) 6.1 K/uL (1.8-8.9); NEUTROPHILS % (AUTO) 84.8 % (43.0-81.0); PLATELET COUNT (AUTO) 150 K/uL (150-450); RED BLOOD CELL COUNT(AUTO) 4.63 MIL/uL (4.0-5.2); RED CELL DISTRIBUTION WIDTH 18.4 % (11.5-15.0); WHITE BLOOD COUNT (AUTO) 7.2 K/uL (4.3-11.0)
[2023-10-12 16:53] LABS: ALANINE AMINOTRANSFERASE 13 U/L (12-78); ALBUMIN 3.9 g/dL (3.4-5.0); ALKALINE PHOSPHATASE 79 U/L (46-116); ASPARTATE AMINOTRANSFERASE 14 U/L (15-37); BILIRUBIN,DIRECT 0.2 mg/dL (0.0-0.2); BILIRUBIN,TOTAL 0.7 mg/dL (0.2-1.0); CARBON DIOXIDE 28 mmol/L (21-32); CHLORIDE 93 mmol/L (98-107); CREATININE 6.1 mg/dL (0.6-1.3); GLUCOSE 83 mg/dL (74-106); POTASSIUM 4.2 mmol/L (3.5-5.1); SODIUM SERUM 134 mmol/L (136-145); TOTAL PROTEIN, SERUM 7.8 g/dL (6.4-8.2); UREA NITROGEN, BLOOD 31 mg/dL (7-18)
[2023-10-12 17:05] LABS: INR 1.16 (0.91-1.10); PARTIAL THROMBOPLASTIN TIME 31.8 SEC (24.3-34.3); PROTHROMBIN TIME 11.8 SECS (9.2-11.1)
[2023-10-12] MEDS: LEVETIRACETAM (500MG) 500 MG in IV NS 0.9% 100 ML IV ONE (17:30)
[2023-10-12] MEDS ORDERED: IV NS 0.9% 250 ML IV ONE (17:36)
[2023-10-12] MEDS ORDERED: IOHEXOL-350 100 ML VIAL IV ONE (17:36)
[2023-10-12] MEDS: NICARDIPINE IN NACL, ISO-OSM 200 ML IV PRN (19:11)
[2023-10-12] MEDS ORDERED: ONDANSETRON HCL/PF 4 MG/2 ML VIAL IVP PRN (23:00)
[2023-10-12] MEDS ORDERED: Z GUARD REMEDY 4 OZ OINT TP PRN (23:00)
[2023-10-12] MEDS ORDERED: MAG HYDROX/AL HYDROX/SIMETH 30 ML UDC PO PRN (23:00)
[2023-10-12] MEDS ORDERED: MAGNESIUM HYDROXIDE 30 ML UDC PO PRN (23:00)
[2023-10-12] MEDS ORDERED: ZOLPIDEM TARTRATE 5 MG TABLET PO PRN (23:00)
[2023-10-12 23:30] VITALS: BP 146/66; TEMP 98.1; O2SAT 93; O2SAT 95
[2023-10-12 23:45] VITALS: BP 142/72; O2SAT 99
[2023-10-13] VITALS (70 sets, daily range): BP systolic 118–155; BP diastolic 54–79; TEMP 97.9–98.1; O2SAT 95–100
[2023-10-13] MEDS ORDERED: LEVETIRACETAM (500MG) 500 MG/5 ML VIAL IV ONE (02:17)
[2023-10-13] MEDS: LEVETIRACETAM (500MG) 500 MG in IV NS 0.9% 100 ML IV SCH ×2 (02:29→08:18)
[2023-10-13] MEDS ORDERED: diphenhydrAMINE HCL 25 MG CAPSULE PO PRN (02:30)
[2023-10-13 03:37] LABS: BASOPHILS # (AUTO) 0.1 K/uL (0.0-0.2); BASOPHILS % (AUTO) 1.5 % (0.0-2.0); EOSINOPHILS # (AUTO) 0.1 K/uL (0.0-0.7); EOSINOPHILS % (AUTO) 2.8 % (0.0-6.0); HEMATOCRIT 31 % (33-45); HEMOGLOBIN 9.7 g/dL (11.5-14.8); LYMPHOCYTES # (AUTO) 0.3 K/uL (0.8-4.8); LYMPHOCYTES % (AUTO) 6.5 % (20.0-44.0); MEAN CORPUSCULAR HEMOGLOBIN 28 PG (26.0-33.0); MEAN CORPUSCULAR HGB CONC 32 g/dl (31.0-36.0); MEAN CORPUSCULAR VOLUME 88 fL (82-100); MONOCYTES # (AUTO) 0.3 K/uL (0.1-1.30); MONOCYTES % (AUTO) 6.1 % (2.0-12.0); NEUTROPHILS # (AUTO) 4.4 K/uL (1.8-8.9); NEUTROPHILS % (AUTO) 83.1 % (43.0-81.0); PLATELET COUNT (AUTO) 122 K/uL (150-450); RED BLOOD CELL COUNT(AUTO) 3.48 MIL/uL (4.0-5.2); RED CELL DISTRIBUTION WIDTH 18.1 % (11.5-15.0); WHITE BLOOD COUNT (AUTO) 5.3 K/uL (4.3-11.0)
[2023-10-13 03:56] LABS: CREATININE 4.6 mg/dL (0.6-1.3); MAGNESIUM 1.5 mg/dL (1.8-2.4); POTASSIUM 2.9 mmol/L (3.5-5.1)
[2023-10-13] MEDS ORDERED: DEXTROSE 50%-WATER 50 ML DISP.SYRIN ONE (04:03)
[2023-10-13 04:07] LABS: CALCIUM, SERUM 5.8 mg/dL (8.5-10.1)
[2023-10-13] MEDS: DEXTROSE 50%-WATER 50 ML DISP.SYRIN IVP ONE (04:13)
[2023-10-13 04:16] LABS: THYROID STIMULATING HORMONE 2.062 uIU/mL (0.358-3.74)
[2023-10-13] MEDS: POTASSIUM CHLORIDE 20 MEQ TAB.PRT.SR PO ONE (04:51)
[2023-10-13] MEDS: BLOOD SUGAR DIAGNOSTIC 1 EACH STRIP IN SCH (04:59)
[2023-10-13] MEDS: NICARDIPINE IN NACL, ISO-OSM 200 ML IV PRN (05:33)
[2023-10-13] MEDS: NICARDIPINE IN DEXTROSE,ISO-OS 200 ML IV ONE (05:34)
[2023-10-13] MEDS: SEVELAMER CARBONATE 800 MG TABLET PO SCH (07:34)
[2023-10-13] MEDS: HYDROCODONE/APAP 5/325MG TABLET PO PRN (07:44)
[2023-10-13] MEDS: DOCUSATE SODIUM 100 MG CAPSULE PO SCH (08:18)
[2023-10-13] MEDS: CARVEDILOL 12.5 MG TABLET PO SCH (08:19)
[2023-10-13] MEDS: hydrALAZINE HCL 50 MG TABLET PO SCH (08:19)
[2023-10-13] MEDS: predniSONE 5 MG TABLET PO SCH (08:59)
[2023-10-13] MEDS ORDERED: AMLODIPINE BESYLATE 5 MG TABLET PO SCH (09:00)
[2023-10-13 12:34] LABS: INR 1.18 (0.91-1.10); PROTHROMBIN TIME 12.4 SECS (9.2-11.1)
[2023-10-13] MEDS: ACETAMINOPHEN 325 MG TABLET PO PRN (20:52)
[2023-10-14] VITALS (61 sets, daily range): BP systolic 106–176; BP diastolic 53–95; TEMP 98–98.8; O2SAT 92–100
[2023-10-14 03:50] LABS: BASOPHILS % (AUTO) 0.7 % (0.0-2.0); EOSINOPHILS % (AUTO) 0.5 % (0.0-6.0); HEMATOCRIT 34 % (33-45); HEMOGLOBIN 10.8 g/dL (11.5-14.8); LYMPHOCYTES # (AUTO) 0.4 K/uL (0.8-4.8); MEAN CORPUSCULAR HEMOGLOBIN 28 PG (26.0-33.0); MEAN CORPUSCULAR HGB CONC 32 g/dl (31.0-36.0); MEAN CORPUSCULAR VOLUME 88 fL (82-100); MONOCYTES # (AUTO) 0.4 K/uL (0.1-1.30); MONOCYTES % (AUTO) 6.6 % (2.0-12.0); NEUTROPHILS # (AUTO) 5.3 K/uL (1.8-8.9); NEUTROPHILS % (AUTO) 86.2 % (43.0-81.0); PLATELET COUNT (AUTO) 136 K/uL (150-450); RED BLOOD CELL COUNT(AUTO) 3.84 MIL/uL (4.0-5.2); RED CELL DISTRIBUTION WIDTH 18.8 % (11.5-15.0); WHITE BLOOD COUNT (AUTO) 6.1 K/uL (4.3-11.0)
[2023-10-14 04:06] LABS: CALCIUM, SERUM 7.9 mg/dL (8.5-10.1); CREATININE 4.8 mg/dL (0.6-1.3); PHOSPHORUS 3.8 mg/dL (2.5-4.9)
[2023-10-14] MEDS ORDERED: CLONIDINE HCL 0.1 MG TABLET PO PRN (08:00)
[2023-10-14] MEDS: AMLODIPINE BESYLATE 10 MG TABLET PO SCH (08:15)
[2023-10-14] MEDS: hydrALAZINE HCL 50 MG TABLET PO SCH (08:15)
[2023-10-14 13:09] LABS: HEPATITIS B SURFACE AB Reactive (.)
[2023-10-14] MEDS ORDERED: NEPRO VAN 237 ML CAN PO PRN (14:30)
[2023-10-14] MEDS: PROSOURCE / PROSTAT (PYXIS) 30 ML UDC PO SCH (16:44)
[2023-10-15] VITALS (9 sets, daily range): BP systolic 136–171; BP diastolic 60–77; TEMP 93.4–98.6; O2SAT 92–100
[2023-10-15] MEDS: hydrALAZINE HCL IV 20 MG VIAL IV PRN (04:04)
[2023-10-15 06:36] LABS: BASOPHILS % (AUTO) 0.5 % (0.0-2.0); EOSINOPHILS # (AUTO) 0.1 K/uL (0.0-0.7); EOSINOPHILS % (AUTO) 1.8 % (0.0-6.0); HEMATOCRIT 40 % (33-45); HEMOGLOBIN 12.5 g/dL (11.5-14.8); LYMPHOCYTES # (AUTO) 0.6 K/uL (0.8-4.8); LYMPHOCYTES % (AUTO) 9.4 % (20.0-44.0); MEAN CORPUSCULAR HEMOGLOBIN 28 PG (26.0-33.0); MEAN CORPUSCULAR HGB CONC 31 g/dl (31.0-36.0); MEAN CORPUSCULAR VOLUME 88 fL (82-100); MONOCYTES # (AUTO) 0.4 K/uL (0.1-1.30); MONOCYTES % (AUTO) 7.4 % (2.0-12.0); NEUTROPHILS # (AUTO) 4.8 K/uL (1.8-8.9); NEUTROPHILS % (AUTO) 80.9 % (43.0-81.0); PLATELET COUNT (AUTO) 147 K/uL (150-450); RED CELL DISTRIBUTION WIDTH 18.4 % (11.5-15.0); WHITE BLOOD COUNT (AUTO) 5.9 K/uL (4.3-11.0)
[2023-10-15 07:13] LABS: CREATININE 6.7 mg/dL (0.6-1.3); MAGNESIUM 2.3 mg/dL (1.8-2.4); PHOSPHORUS 4.7 mg/dL (2.5-4.9); POTASSIUM 5.5 mmol/L (3.5-5.1)
[2023-10-15] MEDS: LEVETIRACETAM (250 MG) 250 MG TABLET PO SCH (08:21)
[2023-10-15] MEDS: ISOSORBIDE DINITRATE (20MG) 20 MG TABLET PO SCH (08:48)
[2023-10-15] MEDS: hydrALAZINE HCL 50 MG TABLET PO SCH (08:49)
[2023-10-16] VITALS (11 sets, daily range): BP systolic 147–165; BP diastolic 60–79; TEMP 98.1–99.1; O2SAT 94–100
[2023-10-16 06:17] LABS: CALCIUM, SERUM 7.9 mg/dL (8.5-10.1); CREATININE 4.8 mg/dL (0.6-1.3); POTASSIUM 4.4 mmol/L (3.5-5.1)
[2023-10-16] MEDS: LISINOPRIL (20MG) 20 MG TABLET PO SCH (13:11)
[2023-10-17] VITALS (7 sets, daily range): BP systolic 121–160; BP diastolic 54–87; TEMP 97.9–99.1; O2SAT 96–100
[2023-10-17 07:32] LABS: BASOPHILS % (AUTO) 0.7 % (0.0-2.0); EOSINOPHILS # (AUTO) 0.2 K/uL (0.0-0.7); HEMATOCRIT 40 % (33-45); HEMOGLOBIN 12.7 g/dL (11.5-14.8); LYMPHOCYTES # (AUTO) 0.5 K/uL (0.8-4.8); MEAN CORPUSCULAR HEMOGLOBIN 28 PG (26.0-33.0); MEAN CORPUSCULAR HGB CONC 32 g/dl (31.0-36.0); MEAN CORPUSCULAR VOLUME 87 fL (82-100); MONOCYTES # (AUTO) 0.5 K/uL (0.1-1.30); MONOCYTES % (AUTO) 8.6 % (2.0-12.0); NEUTROPHILS # (AUTO) 4.5 K/uL (1.8-8.9); NEUTROPHILS % (AUTO) 78.7 % (43.0-81.0); PLATELET COUNT (AUTO) 165 K/uL (150-450); RED BLOOD CELL COUNT(AUTO) 4.56 MIL/uL (4.0-5.2); WHITE BLOOD COUNT (AUTO) 5.7 K/uL (4.3-11.0)
[2023-10-17 08:08] LABS: CALCIUM, SERUM 8.3 mg/dL (8.5-10.1); CREATININE 4.8 mg/dL (0.6-1.3); MAGNESIUM 2.1 mg/dL (1.8-2.4); PHOSPHORUS 3.9 mg/dL (2.5-4.9); POTASSIUM 4.5 mmol/L (3.5-5.1)
[2023-10-18] VITALS: BP 148/55; TEMP 98.8; O2SAT 95
[2023-10-18 04:25] VITALS: BP 136/59; TEMP 98.8; O2SAT 96
[2023-10-18 07:30] VITALS: BP 141/62; TEMP 98.8; O2SAT 95
[2023-10-18 09:12] VITALS: O2SAT 96
[2023-10-18] MEDS ORDERED: LEVE250T2 PO (12:23)
[2023-10-18] MEDS ORDERED: ISOS20TA8 PO (12:23)
[2023-10-18] MEDS ORDERED: NIFE30TA2 PO (12:23)
[2023-10-18] MEDS ORDERED: HYDR-4077 PO (12:23)
[2023-10-18] MEDS ORDERED: LISI20TA30 PO (12:23)
[2023-10-18] MEDS ORDERED: NUT.237L67 PO (12:23)
[2023-10-18 16:00] VITALS: BP 136/61; TEMP 98.2; O2SAT 100
[2023-10-18 17:07] VITALS: BP 136/61
== END 2023-10-18 18:15 | disposition home health service (06) | DRG 64 ==
LOC: ER 15:46 → ICU 18:06 → TELE 10-14 18:41
PROVIDERS: ADMIT Student in an Organized Health Care Education/Training Program; ATTEND Nurse Practitioner Acute Care
PROC: 5A1D70Z Performance of Urinary Filtration, Intermittent, Less than 6 Hours Per Day (ICD-10-PCS; 2023-10-13)
PROC: 05HB33Z Insertion of Infusion Device into Right Basilic Vein, Percutaneous Approach (ICD-10-PCS; principal; 2023-10-14)
DX: I61.5 Nontraumatic intracerebral hemorrhage, intraventricular (principal); I21.A1 Myocardial infarction type 2; N18.6 End stage renal disease; I16.1 Hypertensive emergency; E87.1 Hypo-osmolality and hyponatremia; G93.49 Other encephalopathy; I13.2 Hypertensive heart and chronic kidney disease with heart failure and with stage 5 chronic kidney disease, or end stage renal disease; I50.22 Chronic systolic (congestive) heart failure; D64.9 Anemia, unspecified; Z88.6 Allergy status to analgesic agent; Z88.3 Allergy status to other anti-infective agents; Z88.2 Allergy status to sulfonamides; Z79.899 Other long term (current) drug therapy; Z86.72 Personal history of thrombophlebitis; L89.226 Pressure-induced deep tissue damage of left hip; F03.90 Unspecified dementia, unspecified severity, without behavioral disturbance, psychotic disturbance, mood disturbance, and anxiety; M89.8X9 Other specified disorders of bone, unspecified site; K74.60 Unspecified cirrhosis of liver; Z99.2 Dependence on renal dialysis; Z91.199 Patient's noncompliance with other medical treatment and regimen due to unspecified reason; E87.6 Hypokalemia; E83.42 Hypomagnesemia
CPT/HCPCS: 36410; 36415; 70450-TC; 70496-TC; 70498-TC; 71045-TC; 80048-TC; 80076-TC; 82962-TC; 83735-TC; 84100-TC; 84443-TC; 84484-TC; 85025-TC; 85610-TC; 85730-TC; 86706; 87081-TC; 87340; 90935-TC; 94760-TC; 94799-TC; 97112-TC; 97116-TC; 97530-TC; A4223; A6403; G0378; J0360; J1953; J7030; J7050; J7512; Q9967